=== PATIENT | male | born 1945 | race Caucasian/White ===

== ENCOUNTER 2020-11-05 03:41 | Inpatient (IN) | payer MEDICARE, OTHER ==
[~2020-11-05] VITALS: Ht 188 cm; Wt 80.6 kg
[~2020-11-05 03:41] MED LIST: GLYB1.5 PO; GLYB2.5 PO; IBUP800 PO; INSULANPEN SC; LEVSOD88 PO; LISI20 PO; METF500C PO; Norco 10-325 T1 EACH PO; PANT40 PO; SIMV10 PO; TELM40 PO
[2020-11-05 04:02] LABS: BASOPHILS ABSOLUTE AUTO 0.06 K/mm3 (0.00-0.23); BASOPHILS PERCENT AUTO 1 % (0-2); EOSINOPHILS ABSOLUTE AUTO 0.12 K/mm3 (0.00-0.68); EOSINOPHILS PERCENT AUTO 2 % (0-6); Hematocrit 45.6 % (37.0-53.0); Hemoglobin 15.2 g/dL (13.5-17.5); IMMATURE GRAN ABSOLUTE AUTO 0.03 K/mm3 (0.00-0.10); IMMATURE GRAN PERCENT AUTO 1 % (0-1); LYMPHOCYTES ABSOLUTE AUTO 1.54 K/mm3 (0.84-5.20); LYMPHOCYTES PERCENT AUTO 27 % (21-46); MONOCYTES PERCENT AUTO 7 % (4-13); Mean Corpuscular HGB Conc 33.3 g/dL (31.5-36.5); Mean Corpuscular Volume 96 fL (80-100); Mean Platelet Volume 11.1 fL (9.1-12.4); NEUTROPHILS ABSOLUTE AUTO 3.57 K/mm3 (1.96-9.15); NEUTROPHILS PERCENT AUTO 63 % (41-73); Platelet Count 152 K/mm3 (150-400); RDW Coefficient Variation 13.4 % (11.7-14.2); RDW Standard Deviation 47.8 fL (35.1-46.3); Red Blood Cell Count 4.75 M/mm3 (4.30-5.90); White Blood Cell Count 5.72 K/mm3 (4.00-11.30)
[2020-11-05 04:21] LABS: Ethanol (Alcohol), Blood, Med <3 mg/dL
[2020-11-05 04:22] LABS: Alanine Aminotransfer (ALT/SGP 21 U/L (12-78); Albumin/Globulin Ratio 1.2 (0.8-1.8); Alk Phos 76 U/L (50-136); Anion Gap 6 mmol/L (6-16); Aspartate Aminotrans (AST/SGOT 17 U/L (12-37); Bilirubin, Total 0.9 mg/dL (0.1-1.0); Blood Urea Nitrogen 21 mg/dL (8-24); Bun/Creatinine Ratio 15.7 (12.0-20.0); CO2, Blood 25 mmol/L (21-32); Calcium, Blood 8.7 mg/dL (8.5-10.1); Chloride, Blood 114 mmol/L (98-108); Creatinine, Blood 1.34 mg/dL (0.60-1.20); Globulin, Blood 3.4 g/dL (2.2-4.0); Glomerular Filtration Rate 55 (60-); Glucose, Blood 149 mg/dL (70-99); Potassium, Blood 3.8 mmol/L (3.5-5.5); Sodium, Blood 145 mmol/L (136-145); Total Protein, Blood 7.4 g/dL (6.4-8.2); Troponin I <0.015 ng/mL (0.000-0.040)
[2020-11-05 04:56] LABS: Source, Urine Voided
[2020-11-05 04:59] LABS: Bilirubin, Urine Neg (Neg); Blood, Urine Neg (Neg); Glucose Qualitative, Urine 3+ (Neg); Ketones, Urine Neg (Neg); Leukocyte Esterase, Urine Neg (Neg); Nitrite, Urine Neg (Neg); Protein, Urine 2+ (Neg); Urobilinogen, Urine 1+ (Normal)
[2020-11-05 05:14] LABS: U Amphetamine Screen Not Detected; U Barbituate Screen Not Detected; U Benzodiazapine Screen Not Detected; U Buprenorphine Screen Not Detected; U Cannabinoids Screen Not Detected; U Cocaine Screen Not Detected; U Methadone Screen Not Detected; U Methamphetamine Screen Not Detected; U Opiates Screen Not Detected; U Oxycodone Screen Not Detected; U Phencyclidine Screen Not Detected; U Propoxyphene Screen Not Detected
[2020-11-05 05:17] LABS: Appearance, Urine Clear (Clear); Color, Urine Yellow (P-Yellow)
[2020-11-05 05:18] LABS: White Blood Cells, Urine 0-2 /hpf (0-5)
[2020-11-05 05:19] LABS: Bacteria Rare /hpf; Mucus Mod (0-Heavy); Red Blood Cells, Urine 0-2 /hpf (0-2); Squamous Epithelial Cells Few /hpf (Few)
[2020-11-05] MEDS ORDERED: DONEPEZIL HCL5 M2 PO (05:55)
[2020-11-05] MEDS ORDERED: LEVETIRACETAM PO (05:56)
[2020-11-05 05:57] LABS: Free Thyroxine 0.34 ng/dL (0.70-1.60); Thyroid Stimulating Hormone 44.6 uIU/mL (0.360-4.800); Triiodothyronine, Free 1.37 pg/mL (2.18-3.98)
[2020-11-05 13:57] LABS: Influenza A, PCR NEGATIVE (NEGATIVE); Influenza B, PCR NEGATIVE (NEGATIVE); Resp Syncytial Virus, PCR NEGATIVE (NEGATIVE); SARS-Cov-2 (COVID-19) PCR, MMC NEGATIVE (NEGATIVE)
--- NOTE | 2020-11-05 17:52 | NUR ---
UPDATE; BED ALARMS AND PT IS STANDING IN ROOM BY BED. VERY AGATED AND PULLING GOWN AND TELE CORDS OFF. STATES HE'S LEAVING AND WE CAN'T HOLD HIM HEAR. MULTIPLE STAFF MEMBERS TO ROOM. ASSISTED TO BED, RESISTS AND GRABS FOREARM OF METAL BUMPER AND REFUSES TO LET GO. SECURITY NOTIFIED AND TO BEDSIDE. ASSISTED BY STAFF AND SECURITY TO BED SUZIE VEST PLACED, WRIST RESTRAINTS BILATERAL. PULLING AGAINST RESTRAINTS AND CALLS THIS RN A BITCH. PROVIDER NOTIFIED BY WINCHER. RESTRAINT ORDERS PLACED AND ORDER FOR ATIVAN GIVEN. MEDICATED PER ORDERS. LEFT ROOM, REMAINS ON VIDEO MONITORING. CALLED BY PRINCIPAL JAVA SOFTWARE ENGINEER THAT LEGS ARE OVER SIDE OF BED, BACK TO ROOM AND PT IS DIAGNOL IN BED WITH FEET TOUCHING FLOOR. BILATERAL ANKLE RESTRAINTS PLACED, WINCHER UPDATED.
--- NOTE | 2020-11-05 23:26 | NUR ---
CALLED DR REEVES REGARDING PT'S BP BEING HIGH DUE TO AGITAION. DR REEVES SAID TO GIVE ATIVAN NO NEW ORDERS RECIEVED.
--- NOTE | 2020-11-06 00:48 | NUR ---
CALLED DR MORTON REGARIDING PT. PT VERY AGITATED, CONFUSED, SITTING UP AND COMBATIVE SHORTLY AFTER RECIEVING ATIVAN. PT IS ON FOUR PT SOFT RESTRAINTS AND HAS VEST IN PLACE. DR MORTON ORDERED HALDOL 2-3MG IV Q6 PRN.
[2020-11-06 05:22] LABS: BASOPHILS ABSOLUTE AUTO 0.02 K/mm3 (0.00-0.23); BASOPHILS PERCENT AUTO 0 % (0-2); EOSINOPHILS PERCENT AUTO 0 % (0-6); Hematocrit 43.4 % (37.0-53.0); IMMATURE GRAN ABSOLUTE AUTO 0.08 K/mm3 (0.00-0.10); IMMATURE GRAN PERCENT AUTO 1 % (0-1); LYMPHOCYTES ABSOLUTE AUTO 0.51 K/mm3 (0.84-5.20); LYMPHOCYTES PERCENT AUTO 4 % (21-46); MONOCYTES ABSOLUTE AUTO 0.25 K/mm3 (0.16-1.47); MONOCYTES PERCENT AUTO 2 % (4-13); Mean Corpuscular HGB 32.1 pg (26.0-34.0); Mean Corpuscular HGB Conc 34.6 g/dL (31.5-36.5); Mean Corpuscular Volume 93 fL (80-100); Mean Platelet Volume 11.5 fL (9.1-12.4); NEUTROPHILS ABSOLUTE AUTO 12.38 K/mm3 (1.96-9.15); NEUTROPHILS PERCENT AUTO 93 % (41-73); Platelet Count 171 K/mm3 (150-400); RDW Coefficient Variation 13.2 % (11.7-14.2); RDW Standard Deviation 44.6 fL (35.1-46.3); Red Blood Cell Count 4.67 M/mm3 (4.30-5.90); White Blood Cell Count 13.24 K/mm3 (4.00-11.30)
[2020-11-06 05:44] LABS: Alanine Aminotransfer (ALT/SGP 22 U/L (12-78); Albumin, Blood 4.1 g/dL (3.4-5.0); Albumin/Globulin Ratio 1.2 (0.8-1.8); Alk Phos 72 U/L (50-136); Anion Gap 12 mmol/L (6-16); Aspartate Aminotrans (AST/SGOT 24 U/L (12-37); Bilirubin, Total 1.3 mg/dL (0.1-1.0); Blood Urea Nitrogen 23 mg/dL (8-24); Bun/Creatinine Ratio 19.5 (12.0-20.0); CO2, Blood 18 mmol/L (21-32); Chloride, Blood 111 mmol/L (98-108); Creatinine, Blood 1.18 mg/dL (0.60-1.20); Globulin, Blood 3.4 g/dL (2.2-4.0); Glomerular Filtration Rate >60 (60-); Glucose, Blood 324 mg/dL (70-99); Potassium, Blood 3.7 mmol/L (3.5-5.5); Sodium, Blood 141 mmol/L (136-145); Total Protein, Blood 7.5 g/dL (6.4-8.2)
--- NOTE | 2020-11-06 06:51 | NUR ---
SHIFT SUMMARY PT HAS BEEN AGITATED AND CONFUSED. HE IS ON 4PT SOFT RESTRAINTS WITH A VEST. PULLING AT RESTRAINGHTS. MAKING ODD STATEMENTS, NOT DIRECTABLE AT TIMES, DIFFERENT TOPICS WITHIN SECONDS, INCONT OF URINE. HEART RATE 60'S TO 130'S AT TIMES WHEN AGITATED. MEDICATED PER EMAR FOR AGITATION.
--- NOTE | 2020-11-06 16:57 | NUR ---
1500 RECEIVED PT TO RM 351 VIA THANIA FROM PCU 8. PT CONFUSED AND DISORIENTED. ADMITTED FOR ACUTE ENCEPHALOPATHY. CURRENTLY IN SUZIE VEST AND SOFT WRIST RESTRAINTS. PT UNDIRECTABLE AND VERY AGGITATED, WELL HIGH FALL RISK. PT TO ER AFTER FALL AT HOME, UNKNOWN CAUSE. HX OF DEMENTIA, NONCOMPLIANT WITH MEDS. PT IS DIABETIC AND CURRENTLY NEEDING TO BE FED HIS MEALS. INCONTINENT OF BOWEL AND BLADDER AT THIS TIME. MOSTLY NONVERBAL; DOES NOT ANS QUESTIONS AND DOES NOT FOLLOW DIRECTIONS. NO S/SX OF DISTRESS TO PRESENT. BED ALARM ON FOR SAFETY. CALL LT IN REACH.
--- NOTE | 2020-11-06 19:52 | NUR ---
AMS NOTED, TURNS HEAD TO VOICE BUT NONVERBAL AT THIS TIME AND ENTIRELY CONFUSED. HE'S UNABLE TO FOLLOW COMMANDS OR REDIRECT. PT IN SUZIE AND BILAT WRIST RESTRAINTS FOR VERY HIGH FALL RISK, IMPULSIVITY AND CONFUSION. HE APPEARS ANXIOUS AND AGGITATED, CONSTANTLY PULLING AT RESTRAINTS AND LINES AND IS ENTIRELY RESISTANT TO CARE. HE'S TENSE/RIGID, RESTLESS AND FIGITY AT ALL TIMES. BED ALARM, X3 RAILS RAISED AND CAMERA MONITORING ALSO IN PLACE.
--- NOTE | 2020-11-06 20:14 | NUR ---
ATTENDS CHANGED FOR URINARY INCONTINENCE AND REQUIRED X3 STAFF. PT EXTREMELY STRONG AND GEORGINA CARE THE ENTIRE TIME. PT UNABLE TO FOLLOW COMMANDS, CLENCHES FISTS NON-STOP, TEARS AT ATTENDS, SUZIE VEST AND RESTRAINTS AND KICKS AT STAFF W/ATTEMPT TO TURN/CHANGE.
--- NOTE | 2020-11-06 20:20 | NUR ---
STAFF ATTEMPTED TO GET VITALS BUT PT IS SO TENSE IT MAKES OBTAINING A BP NEARLY IMPOSSIBLE. BP READS VERY HIGH (SBP 200'S) BUT PT HAS CLENCHED FISTS W/FLEXED ARMS IN WRIST RESTRAINTS WHILE ATTEMPTING TO GET BP IN ARMS AND HE WAS KICKING AT STAFF W/ATTEMPT TO GET BP ON LEGS. PER RN REPORT, MD WANTED TO AVOID PRN ATIVAN BUT I AM UNSURE HOW STAFF WILL ACCURATELY OBTAIN VITALS OR KEEP PT SAFE FROM HARMING SELF OR STAFF WITHOUT FURTHER SEDATING MEDS. WILL DISCUSS W/MD MOMENTARILY AND ATTEMPT VITALS AGAIN WHEN PT IS POSSIBLY CALMER.
--- NOTE | 2020-11-06 20:46 | NUR ---
NOTIFIED YOVANNY (CORONER FORENSIC TECHNICIAN) OF PT'S LEVEL OF AGGITATION, ANXIETY AND TENSITY. HALDOL 10MG IM X1 RX'D. WILL ADMINISITER WHEN AVAILABLE FROM PHARMACY AND EVALUATE FOR EFFECT.
--- NOTE | 2020-11-06 21:55 | NUR ---
ZYPREXA IM X1 RECIEVED MOMENTARILY AGO, AWAITING EFFECT. HE CONT'S TO TUG TUG ON RESTRAINTS NON-STOP, IS EXTREMELY RESTLESS AND FIGITY IN BED AND IS UNABLE TO RELAX, FOLLOW INSTRUCTION OR REDIRECT. HE IS COMPLETELY CONFUSED AND NONVERBAL STILL OUTSIDE OF SOME INCOHERENT MUMBLING.
[2020-11-06] MEDS ORDERED: IBUP800 PO (22:00)
--- NOTE | 2020-11-06 23:33 | NUR ---
PT IS SLIGHTLY MORE CALM FOLLOWING ZYPREXA AND APPEARS TO BE GETTING SOME REST WHEN UNDISTURBED. VITALS WERE FINALLY ABLE TO ACCURATELY BE OBTAINED AND ARE WNL. HE TOLERATED CARE BETTER BUT CONT'S TO REQUIRE X3 ASSIST W/ATTENDS CHANGES AND REPOSITIONING D/T STRENGTH AND RESISTANCE. EVEN W/IMPROVED RESTING, HE CONT'S TO PULL AT LINES/RESTRAINTS AND IS FIGITY/RESTLESS IN BED.
--- NOTE | 2020-11-07 05:08 | NUR ---
SUMMARY: PT IS VERY CONFUSED, DOESN'T ANSWER Q'S, IS MOSTLY NONVERBAL AND SELDOMLY MUMBLES INCOHERENTLY TO SELF. HE APPEARS TO RESPOND TO STAFF'S VOICES BUT RARELY OPENS EYES AND DOESN'T FOLLOW ANY INSTRUCTIONS. HE BEGAN SHIFT EXTREMELY TENSE/RIGID, ANXIOUS, AGGITATED, PULLING AT RESTRAINTS AND LINES CONSTANTLY AND WOULDN'T REDIRECT OR CALM DESPITE ATTEMPTS TO SOOTHE HIM. STAFF WERE UNABLE TO GET ACCURATE BP RESULT BUT SBP APPEARED >200. YOVANNY RX'D ZYPREXA 10MG IM X1 AND IT WAS SOMEWHAT EFFECTIVE AT CALMING HIM. HE STILL FOUGHT SUZIE AND BILAT WRIST RESTRAINTS MAJORITY OF NOCTE BUT WAS ABLE TO GET SOME REST. X3 STAFF REQUIRED TO CHANGE INCONTINENT ATTENDS AND MAINTAIN TURN SCHEDULE D/T STRENGTH AND INABILITY TO REDIRECT HIM. HE WASN'T AWAKE ENOUGH FOR ANY PO INTAKE THIS SHIFT AND FEEDER ASIST REQUIRED DURING MEALS. IV IS SL. HANDS ARE SWOLLEN AND RED BUT PULSES ARE PALPABLE W/GOOD CAP REFILL X4 EXT'S. NO ACUTE CHANGES, VSS/AFEBRILE. WCTM AND REPORT TO DAY RN.
--- NOTE | 2020-11-07 18:52 | NUR ---
SHIFT SUMMARY PT WOKE TO NAME THIS AM AND ANSWERED A COUPLE OF BREIF QUESTIONS. PT LOOKED AT ME WHEN ENTERING RM AND ANSWERED "PRETTY GOOD I GUESS", WHEN ASKED HOW HE WAS DOING. PT THEN LOOKED OUT THE WINDOW AND AROUND THE ROOM AND DID ANS YES AND NO TO A COUPLE OF OTHER QUESTIONS A FEW MINUTES LATER. PT DID NOT ANS ANY MORE QUESTIONS THE REST OF THE DAY AND DID NOT FOLLOW ANY DIRECTIONS. PT BECOMING VERY AGITATED THRU OUT THE DAY AND WOULD NOT CO-OP WITH CHANGING ATTENDS OR REPOSITIONING. DR ARRINGTON HERE IN AM TO SEE PT. NEURO CONSULT ORDERED. DR MAN NOTIFIED OF CONSULT AND CURRENTLY IN RM WITH PT. PT'S CALLED TO CK ON PT; UPDATE GIVEN. DR MAN ASKED THAT PT'S BE IN RM WHEN HE CAME FOR CONSULT TO ASSIST WITH HX. TO AT THIS TIME WELL. PT VERY AGITATED THIS AFTERNOON AND TRYING TO GET OOB CONSTANTLY. PT COMBATIVE WITH STAFF, TRYING TO KICK AT US WHEN CHANGING ATTENDS. DR ARRINGTON NOTIFIED FOR BLE'S SOFT RESTRAINTS WELL. DR MAN IN RM DISCUSSING PT'S HX WITH . IV SOLUMEDROL DOSE ADJUSTED. GURU HEARN ORDERED THIS AM. PT FAILED AND MADE NPO FOR NOW. PO MEDS CHANGED TO IV NEEDED. IVF'S INFUSING PER EMAR. BED ALARM ON FOR SAFETY. PT ON CAMERA. CALL LT IN REACH. REPORT GIVEN TO ONCOMING RN.
--- NOTE | 2020-11-08 05:06 | NUR ---
TIRE SPECIALIST SUMMARY PT CONT TO VERY CONFUSED, VERY RESISTANT TO CARE. PT APPEARS TO RESPOND TO STAFF'S VOICES. PT DOES NOT FOLLOW INSTRUCTIONS, CONT TO PULL ON RESTRAINTS. PT IS VERY ANXIOUS, AGITATED AND BECOMES EXTREMELY TENSE / RIGID WHEN STAFF IS PROVIDING CARE. PT CONT ON 4 PT SOFT RESTRAINTS AND SUZIE VEST. PT NPO ORDERED. NO ACUTE CHANGES NOTED TO PT THIS SHIFT. PT CURRENTLY SLEEPING COMFORTABLY IN BED AT THIS TIME.
--- NOTE | 2020-11-08 16:21 | NUR ---
PATIENT HAS NOT BEEN ORIENTED AT ALL TODAY. SLEEPING/LETHARGIC ALL DAY HOWEVER DOES BECOME AGGITATED IN BED ON OCCASION OR WHEN ADL'S ARE BENG PROVIDED. PATIENT HAS A VERY STRONG, FIRM SHERIFFS AND RESISTS CARE, TURNING, REPOSITIONING; CAN REQUIRE UP TO 3-4STAFF MEMBERS FOR CARE AT TIMES. BP THIS AM WAS ELEVATED; DID RESPOND TO IV HYDRALAZINE. NO PO MEDS GIVEN PER ORDERS; PATIENT ASPIRATION RISK AT THIS TIME. SEVERAL LOOSE STOOLS THIS MORNING. IV KEPPRA ADMINISTERED PER EMAR; LR's AT 75/HR. PATIENT CHECKED ON AND PROVIDED CARE AT MINIMUM Q2HRS. RESTING IN BED AT THIS TIME; 4 PT RESTRAINT & SUZIE VEST IN PLACE. CALL LIGHT WITHIN REACH.
[2020-11-08] MEDS ORDERED: PANT40 PO (17:39)
[2020-11-08] MEDS ORDERED: ZOCOR20 MG PO (17:40)
[2020-11-08] MEDS ORDERED: GLYB2.5 PO (17:40)
[2020-11-08] MEDS ORDERED: Prinivil10 MG PO (17:41)
[2020-11-08] MEDS ORDERED: Aspir 8181 MG PO (17:41)
[2020-11-08] MEDS ORDERED: TRESIBA FL200 UNIT/2 SC (17:42)
--- NOTE | 2020-11-08 22:46 | NUR ---
2054 PT LYING IN BED, WHEN ASKED ABOUT DISCOMFORT, PT DOES NOT ANSWER. PT IS AAO X 1, A HIGH FALL RISK, IS UNABLE TO BE ORIENTED ENOUGHT TO USE CALL LIGHT, ATTMEPTS TO GET OUT OF BE. SUZIE, BILAT WRIST, BILAT ANKLES, AND RAILS X 4 FOR PT SAFETY. NO OTHER APPARENT SIGNS OF DISTRESS. BED ALARM IS ON. CALL LIGHT IS IN REACH.
--- NOTE | 2020-11-09 00:32 | NUR ---
PT LYING IN BED, EYES CLOSED, WAKES EASILY TO VERBAL STIMULI. WHENEVER PT IS AWAKE HE IS PULLING AT RESTRAINTS AND ANYTHING ELSE HE CAN REACH. PT VERY RESISTANT TO BEING TURNED OR CHANGED. ORAL CARE DONE. BS WAS 174. NO OTHER APPARENT SIGNS OF DISTRESS. CALL LIGHT IS IN REACH. RESTRAINTS IN PLACE. BED ALARM IS ON.
--- NOTE | 2020-11-09 02:55 | NUR ---
0200 PT LYING IN BED, EYES CLOSED, APPEARS TO BE RESTING. BREATHING IS EVEN, UNLABORED. NO APPARENT SIGNS OF DISTRESS. CALL LIGHT IS IN REACH. RESTRAINTS ARE IN PLACE. BED ALARM IS ON.
--- NOTE | 2020-11-09 04:08 | NUR ---
PT LYING IN BED, EYES CLOSED, APPEARS TO BE RESTING. BREATHING IS EVEN, UNLABORED. NO APPARENT SIGNS OF DISTRESS. CALL LIGHT IS IN REACH. BED ALARM IS ON. RESTRAINTS ARE IN PLACE.
--- NOTE | 2020-11-09 04:09 | NUR ---
PT IS AAO X 1 TO SELF. DOES NOT ANSWER QUESTIONS RE COMFORT. BS AT HS WAS 203, MN WAS 174. ON RA. PT PULLS ON LINES AND ATTEMPTS TO GET OUT OF BED WITHOUT ASSIST, PT HAS WEAKNESS. PT IS UNABLE TO BE REORIENTED TO USE CALL LIGHT AND NOT GET OUT OF BED. RESTRAINTS ARE IN PLACE.
--- NOTE | 2020-11-09 06:09 | NUR ---
TURNED AND CHANGED PT, PT TOLERATED WELL. NO OTHER APPARENT SIGNS OF DISTRESS. CALL LIGHT IS IN REACH. RESTRAINTS ARE IN PLACE. BED ALARM IS ON. NO OTHER CHANGES THIS SHIFT.
--- NOTE | 2020-11-09 16:36 | NUR ---
PT IS ALERT, THIS AM THE PT WAS MORE AWAKE ABLE TO TALK AND EXPRESS HIS FEELINGS, THE PT WAS ABLE TO STAND AND TOLERATED SITTING IN THE CHAIR AT THE BEDSIDE FOR SEVERAL HOURS UNTIL HE BECAME SLEEPY, THE SPEECH THERAPIST WAS IN TO EVALUATE THE PT BUT HE WAS TO LETHARGIC AT THAT TIME TO PARTICIPATE, THE PT WAS ASSITED BACK TO BED AND RESTED FOR AWHILE THEN BECAME VERY RESTLESS AND AGITATED, ATIVAN WAS GIVEN, THE PT IS IN A SUZIE VEST, PT CONTINUES TO BE RESTLESS, PT IS NOT EASILY REDIRECTED HE WAS THIS AM, CALL LIGHT IN REACH, PT APPEARS TO BE BREATHING EASILY ON RA AT THIS TIME, WILL CONTINUE TO MONITOR AND ASSESS FOR CHANGES
--- NOTE | 2020-11-10 06:40 | NUR ---
SHIFT SUMMARY PT IS 75 Y/O MALE, ADMITTED FOR ACUTE ENCEPHALOPATHY. THIS AM, PT WAS ABLE TO ANSWER "YES" TO HIS NAME, BUT OTHERWISE WOULD NOT RESPOND TO QUESTIONS OR DIRECTIONS, OR MAKE EYE CONTACT WITH STAFF. A&O X 0. NO S/S OF PAIN, NAUSEA OR SOB. PT DID BECOME AGITATED AT TIMES AND PULLED OFF HIS CLOTHES AND ATTENDS, ESPECIALLY WHEN WET. SUZIE RESTRAINT IN PLACE FOR PATIENT SAFETY. NO ACUTE CHANGES IN PT CONDITION NOTED DURING THE NIGHT. WILL CONTINUE TO MONITOR AND TREAT PER EMAR UNTIL HAND OFF TO DAY SHIFT RN.
--- NOTE | 2020-11-10 17:29 | NUR ---
SHIFT SUMMARY PATIENT ALERT, ORIENTED TO SELF THIS SHIFT. PATIENT REMAINS IN SUZIE THIS SHIFT. PATIENT VERY UNSTEADY ON HIS FEET, 2 PERSON ASSIST TO THE BEDSIDE COMODE. PATIENT UNABLE TO ANSWER MOST QUESTIONS APPROPRIATELY OR FOLLOW DIRECTIONS WITHOUT MULTIPLE REPETITIONS. PATIENT ALERT ENOUGH FOR A DIET THIS SHIFT. PATIENT CURRENTLY LAYING IN BED RESTING.
--- NOTE | 2020-11-11 04:32 | NUR ---
SHIFT SUMMARY PATIENT HAD NO ACUTE CHANGES OBSERVED. ALERT TO SELF. CBG 171. POWERGLIDE JAMAR INTACT. LR INFUSING AT 75 mL/HR. IV KEPPRA INFUSED. VSS/AFEBRILE. NO S/SX OF PAIN, SOB, AND N/V. NOT ABLE TO FOLLOW DIRECTIONS AT THIS TIME. RESTRAINTS IN PLACE WITH BED EXIT ATTEMPTS SWINGING LEGS OOB. BED ALARM ACTIVATED. IV ATIVAN 1 MG GIVEN X ONE FOR AGITATION. BED IN LOWEST POSITION. WILL CONTINUE TO MONITOR UNTIL DAY SHIFT NURSE ASSUMES CARE.
--- NOTE | 2020-11-11 06:39 | NUR ---
BP 171/88 AND IV APRESOLINE 10 MG GIVEN FOR SBP>160. BP 143/75 ON RECHECK.
--- NOTE | 2020-11-11 09:29 | NUR ---
PER HOLD INSULIN TODAY.UNSURE OF INTAKE
--- NOTE | 2020-11-11 10:37 | NUR ---
OK FOR RENEW VEST RESTRAINTS PER
--- NOTE | 2020-11-11 11:16 | NUR ---
OK FOR WRIST AND VEST RESTRAINTS. PATIENT STILL PULLING AT IV EVEN THOU WRAPPED UP ARM AND TRYING TO GET OUT. PER
--- NOTE | 2020-11-11 15:39 | NUR ---
ALERT TO SELF. REPEATS QUESTIONS. DOES NOT ANSWER QUESTIONS APPROPRIATELY. TALKED TO S.O. ABOUT PATIENT AND SHE STS SHE IS NOT HOME DURING THE DAY, SO SHE HAS NO IDEA HOW HE ACTS OR WHAT HE DOES DURING THE DAY. WHEN S.O. COMES HOME AROUND DINNERTIME PATIENT USUALLY DOES NOT EAT DINNER HE GETS "MAD AT HER." DID NOT EAT BREAKFAST AND HAD FEW BITES FOR LUNCH. UNLABORED RESPIRATIONS. IN SUZIE VEST AND WRIST RESTRAINTS. PULLED POWERGLIDE APART WHEN WAS IN VEST ALSO TRIES TO SLIP OUT OF VEST AND GET UP. IV INFUSING. WCTM
--- NOTE | 2020-11-11 18:11 | NUR ---
S.O. WAS IN TO VISIT FOR ABOUT 30 MINUTES.
--- NOTE | 2020-11-11 21:35 | NUR ---
PATIENT HAVING INCREASED AGITATION. KICKING AT SIDE RAILS AND END OF BED. IV ATIVAN 1 MG GIVEN PER EMAR.
--- NOTE | 2020-11-12 01:56 | NUR ---
PATIENT HAVING INCREASED AGITATION. KICKING AT STAFF AND KICKED FOOT BOARD OFF BED. HOSPTIALIST DR MORTON ORDERED SOFT EXTREMETRY X 4 RESTRAINTS IN ADDITION TO SUZIE ALREADY IN PLACE.
--- NOTE | 2020-11-12 05:26 | NUR ---
SHIFT SUMMARY PATIENT HAD INCREASED AGITATION T/O SHIFT. KICKED FOOT BOARD OFF END OF BED AND KICKING AT STAFF. HOSPITALIST DR MORTON ORDERED SOFT EXTREMETIES X 4 WITH SUZIE VEST STILL IN PLACE. IV ATIVAN 1 MG GIVEN X TWO FOR AGITATION. NO S/SX OF PAIN, SOB, AND N/V. VSS/AFEBRILE. POWERGLIDE JAMAR INTACT. LR INFUSING AT 75 mL/HR. ALERT TO SELF AND NON-VERBAL AT TIMES. NOT ABLE TO FOLLOW DIRECTIONS AT THIS TIME. BED IN LOWEST POSITION. WILL CONTINUE TO MONITOR UNTIL DAY SHIFT NURSE ASSUMES CARE.
[2020-11-12 06:27] LABS: Hematocrit 39.8 % (37.0-53.0); Hemoglobin 14.2 g/dL (13.5-17.5); Mean Corpuscular HGB 32.3 pg (26.0-34.0); Mean Corpuscular HGB Conc 35.7 g/dL (31.5-36.5); Mean Corpuscular Volume 91 fL (80-100); Mean Platelet Volume 11.3 fL (9.1-12.4); Platelet Count 178 K/mm3 (150-400); Red Blood Cell Count 4.39 M/mm3 (4.30-5.90); White Blood Cell Count 11.81 K/mm3 (4.00-11.30)
--- NOTE | 2020-11-12 06:41 | NUR ---
BP 168/79 AND IV APRESOLINE 10 MG GIVEN FOR SBP >160 BP 134/83 ON RECHECK.
[2020-11-12 06:48] LABS: Anion Gap 8 mmol/L (6-16); Blood Urea Nitrogen 24 mg/dL (8-24); Bun/Creatinine Ratio 23.1 (12.0-20.0); CO2, Blood 24 mmol/L (21-32); Calcium, Blood 8.4 mg/dL (8.5-10.1); Chloride, Blood 111 mmol/L (98-108); Creatinine, Blood 1.04 mg/dL (0.60-1.20); Glomerular Filtration Rate >60 (60-); Glucose, Blood 218 mg/dL (70-99); Potassium, Blood 3.7 mmol/L (3.5-5.5); Sodium, Blood 143 mmol/L (136-145)
--- NOTE | 2020-11-12 13:40 | NUR ---
ALL 3 SKIN TEARS TO RT; HAND, WRIST, F.A WERE CLEANED AND STERI STRIPS APPLIED THEN FOAM WITH BOARDER DRESSING
--- NOTE | 2020-11-12 18:03 | NUR ---
ALERT TO SELF. HAS REFUSED ALL FOOD TODAY. ATTEMPT MULTIPLE TIMES TO GIVE MEDS, BUT TO NO AVAIL. CLENCHES MOUTH SHUT WHEN ATTEMPTING TO DO ORAL CARE. ONLY SENTENCE PATIENT SPOKE TODAY WAS "I'LL EAT LATER." DOES SMILE WHEN RN TALKING TO HIM, BUT MAKES NO ATTEMPT TO VERBALLY RESPOND. UNLABORED RESPIRATIONS. CONDOM CATH IN PLACE. WILL TRY TO PULL OUT IV WHEN BEING TURNED EVEN THOUGH IV SITE IS WRAPPED AND TUBING HIDDEN UNDER SUZIE VEST. ALL 3 SKIN TEARS ON RT ARM/HAND CLEANED, STERI STRIPS APPLIED AND PICS TAKEN. VERBAL CONSENT FOR PICS. , TAYLOR, UPDATED ON CONDITION. TM
--- NOTE | 2020-11-12 22:50 | NUR ---
BP 171/95 AND IV APRESOLINE 10 MG GIVEN PER EMAR FOR SBP>160. BP 133/75 ON RECHECK.
--- NOTE | 2020-11-13 04:17 | NUR ---
SHIFT SUMMARY PATIENT HAD NO ACUTE CHANGES OBSERVED. ALERT TO SELF AND NON-VERBAL T/O SHIFT EXCEPT FOR A FEW WORDS. NOT VERBALLY RESPONDING TO QUESTIONS. BEDREST AND NOT ABLE TO FOLLOW DIRECTIONS. POWERGLIDE JAMAR AND LR INFUSING AT 75mL/HR. RESTRAINTS IN PLACE PER ORDERS. CBG 231. MARGINAL MOUTH OPENING FOR PO MEDICATION. BP 171/95 AND IV APRESOLINE GIVEN PER EMAR WITH RECHECK OF 133/75. AFEBRILE. CALL LIGHT IN REACH. BED IN LOWEST POSITION. WILL CONTINUE TO MONITOR UNTIL DAY SHIFT NURSE ASSUMES CARE.
--- NOTE | 2020-11-13 18:45 | NUR ---
PT PLEASANT TODAY. MORE LUCID THIS AFT THAN THIS AM. HE IS ABLE TO TELL ME HIS NAME AND FOLLOW SOME INSTRUCTIONS. DID AMBULATE 2 ASSIST TO SHOWER TODAY. PERSISTS IN PULLING ATTENDS OFF AND THEN URINATING, HOWEVER MOSTLY ON BED AND FLOOR. THIS IS AN IMPROVEMENT OVER WHERE HE WAS NOT RESPONDING IN THE AM. VEST ON FOR SAFETY AND L ARM SOFT RESTRAINT ON FOR IV PROTECTION. BED IN LOW POSITION, CALL LITE IN REACH, BED ALARM ON FOR SAFETY. CAMERA FOR SAFETY
--- NOTE | 2020-11-13 22:18 | NUR ---
IMPULSIVE/RESTLESS IMPULSIVE, SETTING BED ALARM OFF MULTIPLE TIMES TRYING TO GET OOB HAS SUZIE VEST IN PLACE. STILL ABLE TO GET TO SIDE OF BED OR LEGS OFF BED. ALARM & SIDE RAILS IN PLACE. UNABLE TO FOLLOW DIRECTIONS OR ANSWER QUESTIONS APPROPRIATELY. STATES "I'M GOING TO SHOOT YOU" TO THIS NURSE & TELLS ME "YOU ARE GOING TO GET ARRESTED BY THE POLICE." ALSO STATES HIS MOM IS 80 YR OLD & IS GOING TO , CHILD LIKE RESPONSES & FEARFULNESS. DOESNT ANSWER ANY ORIENTATION QUESTIONS. TOOK 2-[address] BACK IN BED APPROPRIATELY, RESISTS STAFF HELP. MEDICATED c 0.5 MG IV ATIVAN PER ORDERS FOR RESTLESS & IMPULSIVENESS, WILL MONITOR.
--- NOTE | 2020-11-14 06:29 | NUR ---
SHIFT SUMMARY AOXSELF LAST NIGHT, UNABLE TO STATE . UNABLE TO ANSWER REST OF ORIENTATION QUESTIONS OR FOLLOW DIRECTIONS. CHILD LIKE RESPONSES TO QUESTIONS LAST NIGHT, "MY MOM IS 80 & SHE IS GOING TO ", "THE POLICE ARE GOING TO ARREST YOU" "IM GOING TO SHOOT YOU". WOULD NOT OPEN MOUTH FOR ANY PO INTAKE, INCLUDING MEDS & ORAL CARE. IMPULSIVE/CONFUSED/HIGH FALL RISK- SUZIE VEST & L WRIST RESTRAINT IN PLACE FOR SAFETY. SET BED ALARM OFF MULT TIMES TRYING TO GET OOB, MEDICATED c ATIVAN-READ PREVIOUS NOTE. PULLS @LINES, CLOTHING & RESTRAINTS FREQUENTLY. VERY STRONG STIFF/RIGID POSTURE & GALLEY STRIPPER. INCONT OF URINE. 2-3 PER ASSIST TO CHANGE FOR PT TRYS TO GRAB/KICK @TIMES. VSS. DR PENDLETON ORDERED IVIG INFUSION TO START TODAY 11/14/20. CALL LIGHT & BED ALARM IN PLACE FOR SAFETY.
--- NOTE | 2020-11-14 15:22 | NUR ---
PATIENT IS PLEASANTLY CONFUSED. VITALS STABLE. PATIENT RECIEVED IVIG TODAY AND TOLERATED WITHOUT PROBLEM; VITALS REMAINED STABLE. PATIENT SEEMS TO VERY SLOWLY BE "WAKING UP" AND REPLIES APPROPRIATELY TO STAFF ON OCCATION. STILL VERY MUCH CONFUSED. SMILES MUCH. LIKES TO REMOVE HIS BRIEF AND ANY OTHER OBJECT IN HIS REACH. REMAINS IN SUZIE VEST AND L WRIST RESTRAINT TO PROTECT PATIENT FROM REMOVING HIS POWERGLIDE. PATIENT CHECKED ON AT MINIMUM EVERY HOUR DUE TO HIS ACTIVENESS.
--- NOTE | 2020-11-15 06:32 | NUR ---
SHIFT SUMMARY AOX1-ABLE TO STATE NAME & TONIGHT. MORE TALKATIVE THEN PREVIOUS NIGHT & ANSWERS QUESTIONS CORRECTLY @TIMES. PT RESONDS "HELLO" BACK TO ME AFTER I GREET PT & WHEN ASKED IF THIRSTY PT STATES "YES" & TELLS THIS NURSE "I THINK THATS ENOUGH TO DRINK" WHEN HE IS DONE. STILL CONFUSED TO DATE, PLACE & SITUATION, HOWEVER SPEECH HAS IMPROVED. FOLLOWS SIMPLE DIRECTIONS SUCH STICKING OUT TONGUE. RESTLESS T/O NIGHT, HAS REMOVED ATTENDS 7+ TIMES & CONSTANTLY PULLING @SUZIE OR WRIST RESTRAINT, WHICH ARE IN PLACE FOR SAFETY. VSS. NO S/S PAIN, N/V OR DYSPNEA. CALL LIGHT & BED ALARM IN PLACE.
[2020-11-15 08:51] LABS: BASOPHILS ABSOLUTE AUTO 0.01 K/mm3 (0.00-0.23); BASOPHILS PERCENT AUTO 0 % (0-2); EOSINOPHILS ABSOLUTE AUTO 0.03 K/mm3 (0.00-0.68); EOSINOPHILS PERCENT AUTO 0 % (0-6); Hematocrit 35.8 % (37.0-53.0); Hemoglobin 12.5 g/dL (13.5-17.5); IMMATURE GRAN ABSOLUTE AUTO 0.09 K/mm3 (0.00-0.10); IMMATURE GRAN PERCENT AUTO 1 % (0-1); LYMPHOCYTES ABSOLUTE AUTO 1.03 K/mm3 (0.84-5.20); LYMPHOCYTES PERCENT AUTO 15 % (21-46); MONOCYTES ABSOLUTE AUTO 0.52 K/mm3 (0.16-1.47); MONOCYTES PERCENT AUTO 7 % (4-13); Mean Corpuscular HGB 32.1 pg (26.0-34.0); Mean Corpuscular HGB Conc 34.9 g/dL (31.5-36.5); Mean Corpuscular Volume 92 fL (80-100); Mean Platelet Volume 11.3 fL (9.1-12.4); NEUTROPHILS PERCENT AUTO 76 % (41-73); Platelet Count 170 K/mm3 (150-400); RDW Coefficient Variation 12.9 % (11.7-14.2); RDW Standard Deviation 42.5 fL (35.1-46.3); White Blood Cell Count 6.98 K/mm3 (4.00-11.30)
[2020-11-15 09:15] LABS: Alanine Aminotransfer (ALT/SGP 114 U/L (12-78); Albumin, Blood 2.9 g/dL (3.4-5.0); Albumin/Globulin Ratio 0.6 (0.8-1.8); Alk Phos 63 U/L (50-136); Anion Gap 8 mmol/L (6-16); Aspartate Aminotrans (AST/SGOT 74 U/L (12-37); Bilirubin, Total 4.4 mg/dL (0.1-1.0); Blood Urea Nitrogen 17 mg/dL (8-24); Bun/Creatinine Ratio 18.3 (12.0-20.0); CO2, Blood 26 mmol/L (21-32); Calcium, Blood 7.7 mg/dL (8.5-10.1); Chloride, Blood 106 mmol/L (98-108); Creatinine, Blood 0.93 mg/dL (0.60-1.20); Globulin, Blood 4.7 g/dL (2.2-4.0); Glomerular Filtration Rate >60 (60-); Glucose, Blood 144 mg/dL (70-99); Potassium, Blood 2.8 mmol/L (3.5-5.5); Sodium, Blood 140 mmol/L (136-145); Total Protein, Blood 7.6 g/dL (6.4-8.2)
--- NOTE | 2020-11-15 15:45 | NUR ---
PATIENT SEEMS TO BE PROGRESSING [id number], DAY-BY-DAY. HE IS EVEN MORE RESPONSIVE TO STAFF TODAY THAN HE WAS YESTERDAY. ORIENTED TO SELF. HE IS EATING MEALS BUT VERY SMALL AMOUNTS. PO MEDS TAKEN THIS MORNING IN APPLESAUCE. PATIENT RECIEVED A SECOND INFUSION OF IVIG TODAY AND TOLERATED WITHOUT COMPLICATION. PATIENT IS NOT RECIEVING 2 BAGS OF K-RIDERS; POTASSIUM THIS AM WAS 2.8; PATIENT TOLERATING K-RIDERS WITHOUT PROBLEM WELL. PATIENT REMAINS IN SOFT WRIST RESTRAINTS AND SUZIE VEST TO PROTECT IV LINES, STAFF AND FOR PATIENT SAFETY. PATIENT CHECKED ON AT MINIMUM Q 1-2 HOURS AND CARE PROVIDED PER RESTRAINT PROTOCOL PATIENT UNABLE TO CALL USING CALL LIGHT AT THIS TIME.
[2020-11-16 05:57] LABS: Anion Gap 9 mmol/L (6-16); Blood Urea Nitrogen 16 mg/dL (8-24); Bun/Creatinine Ratio 18.4 (12.0-20.0); CO2, Blood 24 mmol/L (21-32); Chloride, Blood 103 mmol/L (98-108); Creatinine, Blood 0.87 mg/dL (0.60-1.20); Free Thyroxine 0.86 ng/dL (0.70-1.60); Glomerular Filtration Rate >60 (60-); Glucose, Blood 164 mg/dL (70-99); Magnesium, Blood 1.9 mg/dL (1.6-2.4); Sodium, Blood 136 mmol/L (136-145); Triiodothyronine, Free 1.18 pg/mL (2.18-3.98)
--- NOTE | 2020-11-16 06:34 | NUR ---
SHIFT SUMMARY PATIENT ALERT AND ORIENTED TO SELF. HAD NO COMPLAINTS OF PAIN OR SHORTNESS OF BREATH. PATIENT CONTINUES TO BE IN VEST AND SOFT WRIST RESTRAINTS. ORDER FOR RESTRAINTS RENEWED BY DR ARRINGTON. PATIENT MEDICATED PER EMAR FOR HYPERTENSION. POWERGLIDE PATENT AND INFUSING. BED IN LOWEST POSITION WITH WHEELS LOCKED AND ALARM ON. CALL LIGHT WITHIN REACH. REPORT GIVEN TO ONCOMING RN.
[2020-11-16 18:11] LABS: ANA DIRECT Positive (Negative); ANTI-DNA (DS) AB QN 1 IU/mL (0-9); RNP ANTIBODIES 2.1 AI (0.0-0.9); SJOGREN'S ANTI-SS-B 0.4 AI (0.0-0.9); SMITH ANTIBODIES <0.2 AI (0.0-0.9)
--- NOTE | 2020-11-16 19:28 | NUR ---
SHIFT SUMMARY: NO ACUTE CHANGES TO REPORT THIS SHIFT. PT ALERT; ORIENTED TO SELF; COOPERATIVE WITH CARE. BILATERAL SOFT WRIST RESTRAINTS & SUZIE IN PLACE R/T UNSTEADY GAIT, HX FALLS, CONFUSION. STEROIDS & REHYDRATION CONTINUING. REPORT GIVEN TO ONCOMING RN.
--- NOTE | 2020-11-17 04:18 | NUR ---
SHIFT SUMMARY: PATIENT IS ALERT AND ORIENTED TO HIS NAME ONLY. FOLLOWS DIRECTIONS OCCASSIONALLY. POOR PO INTAKE, DOES NOT ALLOW ORAL CARE. INC. OF URINE, ATTEMPTED A CONDOM CATH X2 BUT WOULD NOT STAY IN PLACE. PATIENT IS CONSTANTLY PULLING AT BRIEF AND ANY LINE HE GETS A HOLD OF. PATIENT GRABS AT STAFF DURING CARE AND HAS A VERY FIRM ENGLISH AND READING INSTRUCTOR. RESISTANT TO TURNING AND WILL NOT KEEP INC. PAD AND BRIEF ON. BP IS ELEVATED 195/96, HYDRALAZINE 10MG IV PRN IS GIVEN. RECHECK ON BP WAS 151/92, GOOD EFFECT IS OBSERVED.
[2020-11-17 05:16] LABS: BASOPHILS ABSOLUTE AUTO 0.01 K/mm3 (0.00-0.23); BASOPHILS PERCENT AUTO 0 % (0-2); EOSINOPHILS PERCENT AUTO 0 % (0-6); Hematocrit 35.9 % (37.0-53.0); Hemoglobin 12.8 g/dL (13.5-17.5); IMMATURE GRAN ABSOLUTE AUTO 0.06 K/mm3 (0.00-0.10); IMMATURE GRAN PERCENT AUTO 1 % (0-1); LYMPHOCYTES ABSOLUTE AUTO 1.46 K/mm3 (0.84-5.20); LYMPHOCYTES PERCENT AUTO 18 % (21-46); MONOCYTES ABSOLUTE AUTO 0.79 K/mm3 (0.16-1.47); MONOCYTES PERCENT AUTO 10 % (4-13); Mean Corpuscular HGB 32.2 pg (26.0-34.0); Mean Corpuscular HGB Conc 35.7 g/dL (31.5-36.5); Mean Corpuscular Volume 90 fL (80-100); NEUTROPHILS ABSOLUTE AUTO 5.85 K/mm3 (1.96-9.15); NEUTROPHILS PERCENT AUTO 72 % (41-73); Platelet Count 201 K/mm3 (150-400); RDW Coefficient Variation 12.8 % (11.7-14.2); RDW Standard Deviation 42.2 fL (35.1-46.3); Red Blood Cell Count 3.97 M/mm3 (4.30-5.90); White Blood Cell Count 8.17 K/mm3 (4.00-11.30)
[2020-11-17 05:39] LABS: Alanine Aminotransfer (ALT/SGP 126 U/L (12-78); Albumin, Blood 2.8 g/dL (3.4-5.0); Albumin/Globulin Ratio 0.5 (0.8-1.8); Alk Phos 61 U/L (50-136); Anion Gap 8 mmol/L (6-16); Aspartate Aminotrans (AST/SGOT 80 U/L (12-37); Bilirubin, Total 6.1 mg/dL (0.1-1.0); Blood Urea Nitrogen 20 mg/dL (8-24); Bun/Creatinine Ratio 22.5 (12.0-20.0); CO2, Blood 24 mmol/L (21-32); Calcium, Blood 8.1 mg/dL (8.5-10.1); Chloride, Blood 105 mmol/L (98-108); Creatinine, Blood 0.89 mg/dL (0.60-1.20); Globulin, Blood 5.7 g/dL (2.2-4.0); Glomerular Filtration Rate >60 (60-); Glucose, Blood 160 mg/dL (70-99); Potassium, Blood 3.4 mmol/L (3.5-5.5); Sodium, Blood 137 mmol/L (136-145); Total Protein, Blood 8.5 g/dL (6.4-8.2)
--- NOTE | 2020-11-17 19:34 | NUR ---
SHIFT SUMMARY: NO ACUTE CHANGES TO REPORT THIS SHIFT. PT SLEEPING T/O SHIFT; ORIENTED TO SELF AND FAMILY. PT CONFUSED, DISORIENTED, HIGH FALL RISK; SOFT WRIST RESTRAINTS X2 & SUZIE VEST IN PLACE FOR PATIENT SAFETY. MEDS FOR AGITATION & PAIN PER EMAR. STEROIDS & REHYDRATION CONTINUING. REPROT GIVEN TO ONCOMING RN.
--- NOTE | 2020-11-18 06:17 | NUR ---
SHIFT SUMMARY: A&O TO FIRST NAME ONLY, VSMadai, CONTINUES TO BE VERY RESTLESS IN BED, LEGS CONSTANTLY MOVING. FREQUENT URINATION CAUSING PATIENT TO TEAR OFF BRIEF EVEN WITH RESTRAINTS ON WRIST. IV LINE IS HIDDEN OUT OF VIEW. POOR PO INTAKE. RESTRAINT ORDER WAS RENEWED BY DR ARRINGTON @0330. BED ALARM IS ON FOR SAFETY.
[2020-11-18 06:35] LABS: Alanine Aminotransfer (ALT/SGP 140 U/L (12-78); Albumin, Blood 2.8 g/dL (3.4-5.0); Albumin/Globulin Ratio 0.5 (0.8-1.8); Alk Phos 67 U/L (50-136); Anion Gap 8 mmol/L (6-16); Aspartate Aminotrans (AST/SGOT 83 U/L (12-37); Bilirubin, Total 4.6 mg/dL (0.1-1.0); Blood Urea Nitrogen 21 mg/dL (8-24); Bun/Creatinine Ratio 25.3 (12.0-20.0); CO2, Blood 26 mmol/L (21-32); Chloride, Blood 104 mmol/L (98-108); Creatinine, Blood 0.83 mg/dL (0.60-1.20); Globulin, Blood 5.2 g/dL (2.2-4.0); Glomerular Filtration Rate >60 (60-); Glucose, Blood 187 mg/dL (70-99); Sodium, Blood 138 mmol/L (136-145)
[2020-11-18 16:00] LABS: C-REACTIVE PROTEIN, EXT RANGE 0.742 mg/dL (0.000-0.300); Triiodothyronine, Free 2.17 pg/mL (2.18-3.98)
--- NOTE | 2020-11-18 17:29 | NUR ---
SHIFT SUMMARY PATIENT ORIENTED TO SELF. VERY ACTIVE IN BED, CONSTANTLY MOVES LEGS AND PULLS AT BRIEFS. SUZIE AND BLE SOFT WRISTS IN PLACE. 2 PERSON FOR BED MOBILITY AND PERSONAL CARE. PATIENT IS RESISTIVE AND GRABS AT STAFF. POOR PO INTAKE EVEN WITH ENCOURAGEMENT.
[2020-11-19 05:50] LABS: BASOPHILS ABSOLUTE AUTO 0.01 K/mm3 (0.00-0.23); BASOPHILS PERCENT AUTO 0 % (0-2); EOSINOPHILS ABSOLUTE AUTO 0.01 K/mm3 (0.00-0.68); EOSINOPHILS PERCENT AUTO 0 % (0-6); Hematocrit 35.5 % (37.0-53.0); Hemoglobin 12.6 g/dL (13.5-17.5); IMMATURE GRAN ABSOLUTE AUTO 0.05 K/mm3 (0.00-0.10); IMMATURE GRAN PERCENT AUTO 1 % (0-1); LYMPHOCYTES ABSOLUTE AUTO 1.24 K/mm3 (0.84-5.20); LYMPHOCYTES PERCENT AUTO 17 % (21-46); MONOCYTES ABSOLUTE AUTO 0.47 K/mm3 (0.16-1.47); MONOCYTES PERCENT AUTO 6 % (4-13); Mean Corpuscular HGB 32.2 pg (26.0-34.0); Mean Corpuscular HGB Conc 35.5 g/dL (31.5-36.5); Mean Corpuscular Volume 91 fL (80-100); Mean Platelet Volume 11.3 fL (9.1-12.4); NEUTROPHILS ABSOLUTE AUTO 5.52 K/mm3 (1.96-9.15); NEUTROPHILS PERCENT AUTO 76 % (41-73); Platelet Count 178 K/mm3 (150-400); RDW Coefficient Variation 12.9 % (11.7-14.2); RDW Standard Deviation 42.1 fL (35.1-46.3); Red Blood Cell Count 3.91 M/mm3 (4.30-5.90)
[2020-11-19 06:13] LABS: Alanine Aminotransfer (ALT/SGP 121 U/L (12-78); Albumin, Blood 2.8 g/dL (3.4-5.0); Albumin/Globulin Ratio 0.6 (0.8-1.8); Alk Phos 68 U/L (50-136); Anion Gap 7 mmol/L (6-16); Aspartate Aminotrans (AST/SGOT 69 U/L (12-37); Bilirubin, Total 3.1 mg/dL (0.1-1.0); Blood Urea Nitrogen 19 mg/dL (8-24); Bun/Creatinine Ratio 20.9 (12.0-20.0); CO2, Blood 26 mmol/L (21-32); Calcium, Blood 8.5 mg/dL (8.5-10.1); Chloride, Blood 105 mmol/L (98-108); Creatinine, Blood 0.91 mg/dL (0.60-1.20); Globulin, Blood 4.9 g/dL (2.2-4.0); Glomerular Filtration Rate >60 (60-); Glucose, Blood 222 mg/dL (70-99); Potassium, Blood 3.1 mmol/L (3.5-5.5); Sodium, Blood 138 mmol/L (136-145); Total Protein, Blood 7.7 g/dL (6.4-8.2)
--- NOTE | 2020-11-19 07:16 | NUR ---
SHIFT SUMMARY: A&O TO SELF, OCCASSIONALY ANSWERS QUESTION WITH ONE OR TWO WORDS. TYLENOL SUPP WAS GIVEN FOR SUSPECTED PAIN PER FLACC SCALE, SCORE WAS 4, WITH POOR EFFECT. 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 CONTINUOSLY PULLING OFF BRIEF AND REMOVING CLOTHES EVEN WITH SUZIE VEST AND WRIST RESTRAINTS ON. ZYPREXA WAS GIVEN WITH POOR EFFECT X1. PATIENT ATE 40% OF [employer] FOR SNACK AND ONLY SIPS OF NECTAR THICK LIQIUDS. IVF INFUSING PER MD ORDER. INC. OF LARGE AMOUNTS OF URINE. BED ALARM AND CAMERA ARE ON.
--- NOTE | 2020-11-19 17:10 | NUR ---
SHIFT SUMMARY PATIENT ORIENTED TO SELF. PATIENT RESTLESS IN BED AND FREQUENTLY MOVING LEGS AND PULLING OFF BRIEF. TWO PERSON ASSIST FOR REPOSITION AND PERSONAL CARE. PATIENT VERY RESISTIVE AND GRABS AT STAFF. CANNOT FOLLOW DIRECTIONS. POOR PO INTAKE TODAY. MEDS GIVEN CRUSHED BECAUSE PATIENT CHEWS THEM. NEW ORDERS FOR BOWEL CARE GIVEN. VISITED BRIEFLY THIS AFTERNOON.
--- NOTE | 2020-11-20 04:13 | NUR ---
SUMMARY PT REMAINS CONFUSED AND UNCOOPERATIVE. PT CONTINUES TO BE IN RESTRAINTS. PT GIVEN ORDERED ZYPREXA DUE TO CONTINUED PULLING AT RESTRAINTS AND DISROBING. PT DID HAVE SOME PERIODS OF BEING STILL AND QUIET. PT SLEPT VERY LITTLE. PT CURRENTLY AWAKE AND IN NO DISTRESS. CALL LIGHT IN REACH AND BED ALARM ON.
[2020-11-20 09:38] LABS: Albumin, Blood 2.6 g/dL (3.4-5.0); Anion Gap 7 mmol/L (6-16); Blood Urea Nitrogen 19 mg/dL (8-24); Bun/Creatinine Ratio 19.8 (12.0-20.0); CO2, Blood 29 mmol/L (21-32); Calcium, Blood 8.1 mg/dL (8.5-10.1); Chloride, Blood 105 mmol/L (98-108); Creatinine, Blood 0.96 mg/dL (0.60-1.20); Glomerular Filtration Rate >60 (60-); Glucose, Blood 183 mg/dL (70-99); Phosphorus, Blood 2.6 mg/dL (2.5-4.9); Potassium, Blood 3.1 mmol/L (3.5-5.5); Sodium, Blood 141 mmol/L (136-145)
--- NOTE | 2020-11-20 17:16 | NUR ---
SHIFT SUMMARY PATIENT MORE ALERT TODAY, ABLE TO GIVE HIS NAME WHEN ASKED BUT OTHERWISE ONLY ORIENTED TO SELF. WRIST RESTRAINTS DISCONTINUED BUT SUZIE REMAINS IN PLACE. PATIENT LESS AGITATED ONCE WRIST RESTRAINTS REMOVED. PATIENT UP TO BSC 2 ASSIST AND DANGLED ON SIDE OF BED BRIEFLY. CONTINUES TO BE DEFENSIVE WITH CARE/HAVE DIFFICULTY FOLLOWING DIRECTIONS. VISITED IN AFTERNOON.
--- NOTE | 2020-11-21 04:08 | NUR ---
SUMMARY PT PLACED BACK IN WRIST RESTRAINTS. PT WAS ATTEMPTING TO REMOVE POWERGLIDE. PT CONFUSED AND NOT REDIRECTABLE. PT WOULD BENEFIT FROM BEING PLACED BACK ON IV KEPPRA, DUE TO PT CHEWING PO KEPPRA. PT IS TAKING IN PO FLUIDS WELL. PT HAS NOT SLEPT MUCH THIS SHIFT. PT CURRENTLY AWAKE AND IN NO DISTRESS. CALL LIGHT IN REACH, BED ALARM ON AND ON CAMERA.
[2020-11-21 06:00] LABS: Albumin, Blood 2.7 g/dL (3.4-5.0); Anion Gap 7 mmol/L (6-16); Blood Urea Nitrogen 25 mg/dL (8-24); Bun/Creatinine Ratio 24.5 (12.0-20.0); CO2, Blood 27 mmol/L (21-32); Calcium, Blood 8.3 mg/dL (8.5-10.1); Chloride, Blood 105 mmol/L (98-108); Creatinine, Blood 1.02 mg/dL (0.60-1.20); Glomerular Filtration Rate >60 (60-); Glucose, Blood 261 mg/dL (70-99); Phosphorus, Blood 2.7 mg/dL (2.5-4.9); Potassium, Blood 3.1 mmol/L (3.5-5.5); Sodium, Blood 139 mmol/L (136-145)
--- NOTE | 2020-11-21 18:15 | NUR ---
SHIFT SUMMARY: PATIENT DIFFICULT TO AROUSE THIS MORNING, SO MEDICATIONS WERE DELAYED. HE WAS ALERT BUT NON VERBAL DURING THE REST OF THE DAY. APPETITE IS VERY POOR, EATS VERY LITTLE, EVEN WITH ASSISTANCE. DOES NOT COOPERATE WITH SOME CARE. WHEN OUT OF RESTRAINTS FOR ROM WILL ATTEMPT TO PULL CLOTHING AND IV OFF. INCONTINENT OF B&B, WEARING ATTENDS. VISITED THIS EVENING.
[2020-11-22 05:32] LABS: Albumin, Blood 2.9 g/dL (3.4-5.0); Anion Gap 4 mmol/L (6-16); Blood Urea Nitrogen 22 mg/dL (8-24); Bun/Creatinine Ratio 23.2 (12.0-20.0); CO2, Blood 29 mmol/L (21-32); Calcium, Blood 8.3 mg/dL (8.5-10.1); Chloride, Blood 106 mmol/L (98-108); Creatinine, Blood 0.95 mg/dL (0.60-1.20); Glomerular Filtration Rate >60 (60-); Glucose, Blood 216 mg/dL (70-99); Phosphorus, Blood 2.6 mg/dL (2.5-4.9); Potassium, Blood 3.5 mmol/L (3.5-5.5); Sodium, Blood 139 mmol/L (136-145)
--- NOTE | 2020-11-22 05:49 | NUR ---
PT IS CONFUSED, KNOWS HIS NAME, IS WEARING SUZIE VEST AND SOFT WRIST RESTRANTS. CBG AC/HS. MEDS FLOATED ON APPLESAUCE. IMCONTINENT, PT MANAGES TO TAKE OFF ATTENDS AND BLANKETS DESPITE BEING IN RESTRAINTS. PT NEEDS TO BE FED, MULTIPLE SKIN TEARS.
[2020-11-22 13:10] LABS: ATYPICAL PANCA <1:20 titer (Neg:<1:20); CYTOPLASMIC (C-ANCA) <1:20 titer (Neg:<1:20); PERINUCLEAR (P-ANCA) <1:20 titer (Neg:<1:20)
--- NOTE | 2020-11-22 18:22 | NUR ---
SHIFT SUMMARY: PATIENT WAS ALERT, VERBAL, AND PLEASANT THIS MORNING; BECAME MUCH MORE AGITATED AND COMBATIVE THIS AFTERNOON, REQUIRING ADMINISTRATION OF ZYPREXA IM, WHICH DID NOT RELIEVE SXS. TRIED TO WALK PT TO BR WITH FWW, BUT HE WAS UNABLE TO FOLLOW DIRECTIONS AND BECAME TOO UNSTABLE TO USE BR SAFELY, SO WAS PUT BTB BUT REQUIRED 5 NURSING STAFF D/T COMBATIVE NATURE. PILLS CRUSHED, DOES BETTER WITH SF VANILLA PUDDING THAN APPLESAUCE (TOO WATERY). IS WEARING ATTENDS, OFFERING URINAL AT INTERVALS BUT HE IS UNABLE TO USE. NUMEROUS SCRATCHES ON BUTTOCKS, BLE, AND ABDOMEN.
--- NOTE | 2020-11-23 06:15 | NUR ---
SHIFT SUMMARY PT IS A 75 Y/O MALE, ADMITTED FOR ACUTE ENCEPHALOPATHY. HE IS A&O X 0, BEDREST, CURRENTLY IN BUE SOFT WRIST RESTRAINTS AND A SUZIE VEST FOR PT PROTECTION. PT DOES NOT FOLLOW ANY DIRECTIONS, FIGHTS AGAINST STAFF WHEN TURNED OR CHANGED. PT ALSO TENDS TO PULL OF HIS ATTENDS AND ANY BLANKETS. NO S/S OF PAIN, NAUSEA OR SOB. VITAL SIGNS STABLE. PT REFUSED TO TAKE ANY PO MEDS OR FOODS. PT DID NOT SLEEP MUCH DURING THE NIGHT. NO ACUTE CHANGES IN PT CONDITION NOTED. WILL CONTINUE TO MONITOR AND TREAT PER EMAR UNTIL HAND OFF TO DAY SHIFT RN.
--- NOTE | 2020-11-23 15:36 | NUR ---
CALLED JUANITO REGARDING PT NOT TAKING IN MUCH FOR PO FLUIDS AND BP BEING 106/62 THIS AFTERNOON. SHE STATED SHE WOULD TAKE A LOOK AT PT LABS AND VS AND COME TO A DECISION AND PUT IN ORDERS IF NEEDED. FOR NOW WE WILL CONTINUE TO MONITOR PT FOR ANY CHANGES.
--- NOTE | 2020-11-23 19:09 | NUR ---
SHIFT SUMMARY NO ACUTE CHANGES, PT DOES NOT RESPOND VERABLLY. PT DID SAY "I GUESS" AT ONE POINT WHEN ASKED IF HE IS READY TO TAKE HIS MEDS. PT REMAINED IN SOFT RESTRAINTS THIS SHIFT, SUZIE AND SOFT WRIST RESTRAINTS, DUE TO HIS CONFUSION, DIFFICULTY TO REDIRECT, DISROBING, AND HIGH RISK FOR FALL. PT RESPONDED WELL TO RESTRAINTS, MOSTLY QUIET, CONTINUED TO PULL ON ATTENDS AND RESTRAINTS @ TIMES. PT ATE SMALL AMOUNTS DURING EACH MEAL; HOWEVER, DID NOT TAKE IN MUCH FLUIDS. TLAASUNNY NOTIFED OF LACK OF PO FLUID INTAKE AND BP OF 106/62. SHE STATED SHE WOULD LOOK OVER HIS CHART AND PUT IN ORDERS IF NEEDED. PT IS CURRENTLY LYING IN BED, RESTRAINTS IN PLACE AND CAMERA ON. PT DOES NOT USE CALL LIGHT OR EXPRESS NEEDS. NURSING ROUNDING COMPLETED T/O SHIFT WELL PERSONAL CARE AND REPOSITIONING.
--- NOTE | 2020-11-24 05:37 | NUR ---
SHIFT SUMMARY PT IS A 75 Y/O MALE, ADMITTED FOR ACUTE ENCEPHALOPATHY. HE IS A&O X 0, AWAKE BUT DOES NOT INTERACT WITH STAFF OR FOLLOW COMMANDS. PT MOVES IN BED, PULLS OFF CLOTHING AND ATTENDS WHILE IN BED. PT IS IN A SUZIE VEST AND BUE WRIST RESTRAINTS FOR PT SAFETY. NO S/S OF PAIN, NAUSEA OR SOB. VITAL SIGNS STABLE. NO ACUTE CHANGES IN PT CONDITION NOTED. WILL CONTINUE TO MONITOR AND TREAT PER EMAR UNTIL HAND OFF TO DAY SHIFT RN.
[2020-11-24 06:22] LABS: Hematocrit 38.3 % (37.0-53.0); Hemoglobin 13.3 g/dL (13.5-17.5); Mean Corpuscular HGB 32.4 pg (26.0-34.0); Mean Corpuscular HGB Conc 34.7 g/dL (31.5-36.5); Mean Corpuscular Volume 93 fL (80-100); Mean Platelet Volume 11.8 fL (9.1-12.4); Platelet Count 192 K/mm3 (150-400); RDW Coefficient Variation 13.3 % (11.7-14.2); RDW Standard Deviation 45.1 fL (35.1-46.3); White Blood Cell Count 10.28 K/mm3 (4.00-11.30)
[2020-11-24 06:48] LABS: Albumin, Blood 2.9 g/dL (3.4-5.0); Anion Gap 5 mmol/L (6-16); Blood Urea Nitrogen 28 mg/dL (8-24); Bun/Creatinine Ratio 28.4 (12.0-20.0); CO2, Blood 29 mmol/L (21-32); Calcium, Blood 8.8 mg/dL (8.5-10.1); Chloride, Blood 108 mmol/L (98-108); Creatinine, Blood 0.99 mg/dL (0.60-1.20); Free Thyroxine 1.12 ng/dL (0.70-1.60); Glomerular Filtration Rate >60 (60-); Glucose, Blood 128 mg/dL (70-99); Phosphorus, Blood 3.5 mg/dL (2.5-4.9); Sodium, Blood 142 mmol/L (136-145); Triiodothyronine, Free 3.21 pg/mL (2.18-3.98)
--- NOTE | 2020-11-24 18:18 | NUR ---
SHIFT SUMMARY PT REMAINED IN SUZIE AND SOFT WRIST RESTRAINTS T/O SHIFT. PT IS DISORIENTED, NONVERBAL, CONTINUOUSOLY DISROBING AND SOILING BED, WIGGLING IN BED AND SWINGING LEGS TO SIDE OF BED. PT IS HIGH RISK FOR FALLS AND DIFFICULT TO REDIRECT. PT CONTINUES TO STIFFEN WHEN CARE IS PROVIDED. PT RESPONDS TO VERBAL STIMULI AND MOVEMENT. PT HAD MOMENTS WHERE HE WOULD SHAKE HIS HEAD YES WHEN TALKED TO AND LAUGH/SMILE. PT BP WAS ELEVATED THIS EVENING WHEN VS WERE ASSESSED. HOSPITALIST WAS NOTIFED AND SHE PUT IN AN ORDER FOR PRN HYDRALAZINE AND INCREASED HIS DAILY LISINOPRIL DOSE. ORDERED MEDICATIONS WERE ADMINISTERED AND BP WAS REASSESSED SHORTLY AFTER. BP IS NOW STABLE. CBG CONTINUE TO BE ELEVATED, ALEJANDRA WHO IS MONITORING THIS CHANGED THE PT TO A HIGH SLIDING SCALE STARTING TOMORROW. PT CONTINUES TO EAT MINIMAL AMOUNTS EVEN WITH ASSISTANCE. PT TOOK ALL SCHEDULED MEDS TODAY CRUSHED IN PUDDING, THIS TOOK PATCIENCE AND COACHING. PT IS CURRENTLY LYING IN BED AND APPEARS TO BE IN NO DISTRESS. RESTRAINTS IN PLACE.
--- NOTE | 2020-11-25 04:37 | NUR ---
BUSINESS TRANSFORMATION CONSULTANT SUMMARY PT A/O X0. HAS BEEN MOSTLY NON-VERBAL. PT HAS ONLY MUMBLED ABOUT 3 WORDS THIS SHIFT. PT'S BODY STIFFENS UP WITH CARE. BEEN PULLING ON RESTRAINTS OFF AND ON OVERNIGHT. PT HAD PO MELATONIN CRUSHED IN PUDDING, HOWEVER IT TOOK A LOT OF COACHING AND PT HAS COUGHED AFTERWARDSB EVEN WITH SITTING AT 90 DEGREE ANGLE, THEREFORE OTHER PO MEDS HELD DUE TO ASPIRATION RISK. ATTENDS IN PLACE. CALL LIGHT WITHIN REACH, BED ALARM ON. WILL CONTINUE TO MONITOR.
--- NOTE | 2020-11-25 18:06 | NUR ---
SHIFT SUMMARY. LETHARGIC, ALERT AT TIMES, NON VERBAL, INCONTINENT. PT HAS REFUSED ALL ATTEMPTS OF PO FLUIDS AND FOOD TODAY EXCEPT FOR SOME DINNER. PT DOES NOT APPEAR TO BE IN ANY DISTRESS OR DISCOMFORT. IN TO VISIT MOHSENELLIDelphine THIS AFTERNOON AND WAS UPDATED, NO OTHER CHANGES OR CONCERNS.
--- NOTE | 2020-11-26 02:40 | NUR ---
PT IS ALERT AND NON-VERBAL. AGITATED OFF AND ON DURING THE NIGHT AND WOULD SWING LEGS OVER BED. PT'S BODY STIFFENS UP WITH CARE. ASPIRATION RISK, MEDS HELD. HOSPITALIST DR. SOUZA NOTIFIED OF PT NOT ABLE TO TAKE PO MEDS. STATES TO UPDATE INFO TO AM NURSE. NO NEW ORDERS. INCONTIENT OF URINE. ATTENDS IN PLACE. CALL LIGHT WITHIN REACH, BED ALARM ON. WILL CONTINUE TO MONITOR.
--- NOTE | 2020-11-26 17:50 | NUR ---
SHIFT SUMMARY. LETHARGIC, DISORIENTATED, MOSTLY NONVERBAL, INCONTINENT. BILATERAL SOFT WRIST AND SUZIE VEST RESTRAINT CONTINUED PT IS HIGH FALL RISK AND TO PROTECT LINES. PT APPEARS TO BE SOMEWHAT MORE ALERT AND RESPONSIVE THIS EVENING WITH STIMULATION, AFTER STIMULATION BY STAFF HAS ENDED PT QUICKLY BECOMES LETHARGIC AGAIN. PT ONLY ALLOWED STAFF TO GIVE TWO SPOON FULLS OF THICKENED WATER, HE DID ALLOW FOR ORAL CARE WITH SUCTION TWICE THIS SHIFT. PT STARTED ON CLINIMIX TODAY. NO VISITORS TODAY. NO APPARENT DISTRESS OR DISCOMFORT. NO OTHER CHANGES OR CONCERNS.
[2020-11-27 04:51] LABS: BASOPHILS PERCENT AUTO 0 % (0-2); EOSINOPHILS ABSOLUTE AUTO 0.01 K/mm3 (0.00-0.68); EOSINOPHILS PERCENT AUTO 0 % (0-6); Hematocrit 39.3 % (37.0-53.0); Hemoglobin 13.5 g/dL (13.5-17.5); IMMATURE GRAN ABSOLUTE AUTO 0.03 K/mm3 (0.00-0.10); IMMATURE GRAN PERCENT AUTO 0 % (0-1); LYMPHOCYTES ABSOLUTE AUTO 0.91 K/mm3 (0.84-5.20); LYMPHOCYTES PERCENT AUTO 10 % (21-46); MONOCYTES ABSOLUTE AUTO 0.53 K/mm3 (0.16-1.47); MONOCYTES PERCENT AUTO 6 % (4-13); Mean Corpuscular HGB 31.8 pg (26.0-34.0); Mean Corpuscular HGB Conc 34.4 g/dL (31.5-36.5); Mean Corpuscular Volume 93 fL (80-100); Mean Platelet Volume 11.4 fL (9.1-12.4); NEUTROPHILS ABSOLUTE AUTO 8.02 K/mm3 (1.96-9.15); NEUTROPHILS PERCENT AUTO 84 % (41-73); Platelet Count 212 K/mm3 (150-400); RDW Coefficient Variation 13.2 % (11.7-14.2); RDW Standard Deviation 43.9 fL (35.1-46.3); Red Blood Cell Count 4.24 M/mm3 (4.30-5.90)
--- NOTE | 2020-11-27 05:04 | NUR ---
GRADUATE ADVISOR SUMMARY PT A/O X0, HOWEVER HE HAS BEEN MORE ALERT TODAY. PT HAS SAID A FEW WORDS OVERNIGHT. ATTEMPTED TO GIVE MEDS BUT PT HAS REFUSED AND DOESN'T OPEN HIS MOUTH. AGITATED MOST OF THE NIGHT AND CONTINUES TO PULL HIS ATTENDS OFF CONSTANTLY AND WIGGLING IN THE BED AT TIMES. IM ZYPREXA GIVEN BUT DID NOT HELP MUCH. VSS. BED ALARM ON, CALL LIGHT WITHIN REACH.
[2020-11-27 05:09] LABS: Albumin, Blood 2.7 g/dL (3.4-5.0); Anion Gap 8 mmol/L (6-16); Blood Urea Nitrogen 46 mg/dL (8-24); Bun/Creatinine Ratio 45.5 (12.0-20.0); CO2, Blood 27 mmol/L (21-32); Calcium, Blood 8.7 mg/dL (8.5-10.1); Chloride, Blood 110 mmol/L (98-108); Creatinine, Blood 1.01 mg/dL (0.60-1.20); Glomerular Filtration Rate >60 (60-); Glucose, Blood 199 mg/dL (70-99); Magnesium, Blood 2.5 mg/dL (1.6-2.4); Potassium, Blood 3.6 mmol/L (3.5-5.5); Sodium, Blood 145 mmol/L (136-145)
--- NOTE | 2020-11-27 18:27 | NUR ---
SHIFT SUMMARY PATIENT ALERT TO SELF THIS SHIFT. PATIENT SPEAKING IN FEW 3-6 WORD SENTENCES THIS AM. PATIENT STATES "I HAVE TO PEE IN A CUP" THIS AM. ATTEMPT TO HAVE PATIENT URINATE IN URINAL UNSUCCESSFUL. BLADDER PALPATED WITH PAINFUL RESPONSE FROM PATIENT. BLADDER SCAN CONDUCTED, >999 ML RESULT. NOTIFIED, Q6 BLADDER SCAN WITH STRAIGHT CATH FOR > 300 ORDERED. STRAIGHT CATH RESULTED IN 750 ML OUTPUT. PATIENT IMMEDIATELY RELAXED AND SLEPT MOST OF THE AFTERNOON AFTER CATH. BLADDER SCAN AT 1800 RESULTED IN 529 ML. STRAIGHT CATH PERFORMED, 350 OUTPUT. PATIENT ONCE AGAIN RESTING IN BED.
--- NOTE | 2020-11-28 04:27 | NUR ---
PT hyperalert does not sleep or sleeps for only minutes with eyes open. ON remote camera monitoring with several calls PT attempting to climb out of bed despite jeanine vest & bilat wrist restraints. He was straight cathed for 250 ml foul smelling cloudy urine after bladder scan PVR of greater than 300 ml. PT repeatedly removes attends & wets under himself requires multiple total bed & clothing changes. Continues to be on clinimix & lipids & has BG checks Q 4 hours as well as q 6 hour bladder scans. PT takes only bits of jello declines oral fluids.
[2020-11-28 05:28] LABS: Magnesium, Blood 2.4 mg/dL (1.6-2.4)
[2020-11-28 05:29] LABS: Phosphorus, Blood 3.7 mg/dL (2.5-4.9)
--- NOTE | 2020-11-28 07:16 | NUR ---
PT had several periods where he has shallow breathing followed by cessation of respirations & he has blank look on face. This lasts around 60 seconds & when roused he resumes breathing. Full code status, has seizure disorder, on IV keppra Q 12 hours.
[2020-11-28 11:30] LABS: Source, Urine Clean Catch
[2020-11-28 11:36] LABS: Appearance, Urine Cloudy (Clear); Bilirubin, Urine Neg (Neg); Blood, Urine 3+ (Neg); Color, Urine Yellow (P-Yellow); Glucose Qualitative, Urine Neg (Neg); Ketones, Urine Neg (Neg); Leukocyte Esterase, Urine 3+ (Neg); Nitrite, Urine Neg (Neg); Protein, Urine 2+ (Neg); Urobilinogen, Urine 1+ (Normal)
[2020-11-28 11:51] LABS: BASOPHILS ABSOLUTE AUTO 0.01 K/mm3 (0.00-0.23); BASOPHILS PERCENT AUTO 0 % (0-2); EOSINOPHILS ABSOLUTE AUTO 0.02 K/mm3 (0.00-0.68); EOSINOPHILS PERCENT AUTO 0 % (0-6); Hematocrit 37.8 % (37.0-53.0); Hemoglobin 12.6 g/dL (13.5-17.5); IMMATURE GRAN ABSOLUTE AUTO 0.04 K/mm3 (0.00-0.10); IMMATURE GRAN PERCENT AUTO 0 % (0-1); LYMPHOCYTES ABSOLUTE AUTO 0.39 K/mm3 (0.84-5.20); LYMPHOCYTES PERCENT AUTO 4 % (21-46); MONOCYTES ABSOLUTE AUTO 0.32 K/mm3 (0.16-1.47); MONOCYTES PERCENT AUTO 4 % (4-13); Mean Corpuscular HGB 31.6 pg (26.0-34.0); Mean Corpuscular HGB Conc 33.3 g/dL (31.5-36.5); Mean Corpuscular Volume 95 fL (80-100); Mean Platelet Volume 11.6 fL (9.1-12.4); NEUTROPHILS ABSOLUTE AUTO 8.23 K/mm3 (1.96-9.15); NEUTROPHILS PERCENT AUTO 91 % (41-73); Platelet Count 178 K/mm3 (150-400); RDW Coefficient Variation 13.1 % (11.7-14.2); RDW Standard Deviation 44.7 fL (35.1-46.3); Red Blood Cell Count 3.99 M/mm3 (4.30-5.90); White Blood Cell Count 9.01 K/mm3 (4.00-11.30)
[2020-11-28 12:02] LABS: PCO2 Arterial 33.7 mmHg (35-45); PO2 Arterial 70.9 mmHg (80-100); pH Blood Arterial 7.47 (7.35-7.45)
[2020-11-28 12:07] LABS: Alanine Aminotransfer (ALT/SGP 46 U/L (12-78); Albumin, Blood 2.5 g/dL (3.4-5.0); Albumin/Globulin Ratio 0.5 (0.8-1.8); Alk Phos 68 U/L (50-136); Anion Gap 3 mmol/L (6-16); Aspartate Aminotrans (AST/SGOT 21 U/L (12-37); Blood Urea Nitrogen 48 mg/dL (8-24); Bun/Creatinine Ratio 54.3 (12.0-20.0); CO2, Blood 26 mmol/L (21-32); Calcium, Blood 8.5 mg/dL (8.5-10.1); Chloride, Blood 112 mmol/L (98-108); Creatinine, Blood 0.88 mg/dL (0.60-1.20); Globulin, Blood 4.6 g/dL (2.2-4.0); Glomerular Filtration Rate >60 (60-); Glucose, Blood 240 mg/dL (70-99); Potassium, Blood 3.9 mmol/L (3.5-5.5); Sodium, Blood 141 mmol/L (136-145); Total Protein, Blood 7.1 g/dL (6.4-8.2)
[2020-11-28 12:16] LABS: White Blood Cells, Urine 50-100 /hpf (0-5)
[2020-11-28 12:17] LABS: Amorphous Light (0-Heavy); Bacteria Many /hpf; Squamous Epithelial Cells Not Seen /hpf (Few)
[2020-11-28 12:18] LABS: Triple Phosphate Crystals Few /hpf
[2020-11-28 13:05] LABS: Free Thyroxine 1.28 ng/dL (0.70-1.60); Thyroid Stimulating Hormone 2.78 uIU/mL (0.360-4.800); Triiodothyronine, Free 1.42 pg/mL (2.18-3.98)
[2020-11-28 13:37] LABS: Source, Urine Catheter
[2020-11-28 13:46] LABS: Appearance, Urine Cloudy (Clear); Bilirubin, Urine Neg (Neg); Blood, Urine 4+ (Neg); Color, Urine Yellow (P-Yellow); Glucose Qualitative, Urine 3+ (Neg); Ketones, Urine Neg (Neg); Leukocyte Esterase, Urine 3+ (Neg); Nitrite, Urine Pos (Neg); Protein, Urine 2+ (Neg); Specific Gravity, Urine 1.015 (1.003-1.022); Urobilinogen, Urine 1+ (Normal)
[2020-11-28 13:59] LABS: Amorphous Heavy (0-Heavy); Bacteria Many /hpf; Mucus Light (0-Heavy); Red Blood Cells, Urine TNTC /hpf (0-2); Squamous Epithelial Cells Rare /hpf (Few); Transitional Epithelial Cells Rare /hpf (0-Rare); White Blood Cells, Urine TNTC /hpf (0-5)
--- NOTE | 2020-11-28 14:27 | NUR ---
TRANSFER TO ICU PT TRANSFERED TO ICU ROOM 3 AT 1310 VIA BED. PT IS SOMNOLENT UPON ARRIVAL. PT IS DIFFICULT TO AROUSE. PT TRANSFERED TO ICU BED. PT IS MORE ALERT AFTER TRANSFER FOR ONLY BREIF PERIOD. PT ANSWERS SIMPLE QUESTIONS, BUT IS CONFUSED. PT WITH LONG INTERMITTENT PERIODS OF APNEA WHILE RESTING. VITAL SIGNS STABLE, PT ON ROOM AIR, NO DROP IN SPO2 WITH PERIODS OF APNEA. POWERGLIDE TO JAMAR IN PLACE WITH CLINIMIX INFUSING AT 75 ML/HR. THOMPSON TEMP PROBE PLACED, CLOUDY YELLOW URINE OUTPUT NOTED. UA SENT. PT WITH SCATTERED SCABS THROUGHOUT BODY. SKIN TEARS TO BUE'S NOTED. WILL CONTINUE TO MONITOR.
--- NOTE | 2020-11-28 15:58 | NUR ---
TRANSFER NOTE PATIENT ALERT TO SELF THIS SHIFT. PATIENT ONLY AWAKE FOR SHORT PERIODS, USUALLY LESS THAN 1 MINUTE. PATIENT SLEEPING WITH APNIC PERIODS UP TO 30-45 SECONDS. PULSE OX MONITORED WITH DROPS FROM 100 TO LOW 90S COMMON DURING APNIC PERIODS, OCCASIONAL DROPS TO THE MID 70S. BRADICARDIA DURING APNIC PERIODS TO THE LOW 40S FROM THE 60S. PATIENT TRANSFERED TO ICU DUE TO PATIENT'S CONFUSED STATE REQUIRING RESTRAINTS AND PATIENTS NEED FOR BIPAP FOR O2. PATIENT ASLEEP DURING TRANSFER PERIOD. REPORT TO FAUSTO BROWN, IN ICU.
--- NOTE | 2020-11-28 17:59 | NUR ---
SHIFT SUMMARY NO ACUTE CHANGES THIS AFTERNOON. PT REMAINS CONFUSED AND SOMNOLENT. PT SPEAKS SOME WORDS, BUT SPEECH IS NONSENSICAL. VITAL SIGNS HAVE REMAINED STABLE. PT ON ROOM AIR. NO RESPIRATORY DISTRESS NOTED. PT CONTINUES TO HAVE BREIF PERIODS OF APNEA WHILE AT REST. POWERGLIDE TO JAMAR REMAINS IN PLACE WITH CLINIMIX INFUSING AT 75 ML/HR. POWERGLIDE INSERTED TO ORIN, SALINE LOCKED. THOMPSON TEMP PROBE REMAINS IN PLACE WITH MILKY/CLOUDY YELLOW URINE OUTPUT NOTED. PT SCABS AND SKIN TEARS REMAIN UNCHANGED. UPDATED PT SPOUSE AT BEDSIDE. WILL CONTINUE TO MONITOR AND REPORT OFF TO ONCOMING RN.
--- NOTE | 2020-11-28 21:29 | NUR ---
PT AGGITATED, YELLING OUTY, ATTEMPTING TO GET OOB, ATTEMPT TO HIT STAFF. 5 MG ZYPREXIA GIVEN IM, RESTRAINTS APPLIED AND DOCUMENTED, DEVELOPER PROGRAMMER NOTIFIED.
--- NOTE | 2020-11-29 00:08 | NUR ---
REASSESS PT CONTINUES TO BE CONFUSED, THINKS IS IN ROOM, YELLING OUT AT TIMES, ATTEMPT TO PULL ANDREA, MITTS ADDED TO RESTRAINTS. CONTINUE TO ASSESS
[2020-11-29 03:42] LABS: Magnesium, Blood 2.2 mg/dL (1.6-2.4)
[2020-11-29 03:43] LABS: Phosphorus, Blood 3.5 mg/dL (2.5-4.9)
--- NOTE | 2020-11-29 04:14 | NUR ---
REASSESS PT REMAINS IN RESTRAINTS BILAT WRIST AND MITTS DUE TO PULLING AT LINES AND THOMPSON. ORAL CARE DONE, REPOSITION IN BED, PT REMAINS CONFUSED TO WHERE HE IS, KNOWS YEAR, SELF, NOT PLACE. PT SLEEPS ON AND OFF, BUT WHEN AWAKE, ATTEMTPS TO KICK FEET OUT OF BED AND WANTS TO GET UP. CONTINUE TO ASSESS.
--- NOTE | 2020-11-29 04:46 | NUR ---
pt transfer to medical on ra via bed, report given to Ector Asher RN.
--- NOTE | 2020-11-29 05:14 | NUR ---
75 YR OLD MALE TRANSFERRED FROM THE ICU, WITH DX OF ACUTE ENCEPHALOPATHY. IN BILAT WRIST RESTRAINTS AND BILATERAL MITTENS TO PREVENT PT PULLING OUT HIS THOMPSON CATHETER. AWAKE. VERBAL RESPONSE CONFUSED. CALL LIGHT IN REACH. RAILS UP X 3.
--- NOTE | 2020-11-29 06:10 | NUR ---
SHIFT SUMMARY PT WAS RECEIVED FROM THE ICU WITH DX OF ACUTE ENCEPHALOPATHY. BILATERAL WRIST RESTRAINTS AND MITTENS ON DUE TO MULTIPLE ATTEMPTS TO PULL OUT LINES/THOMPSON CATH. THOMPSON CATH DRAINING. CLINIMIX INFUSING AT 75 ML/HR ORDERED AND Q 6 HR ACCU CHECKS ORDERED. ACCU CHECK THIS AM: 140. CALL LIGHT IN REACH. CURRENTLY PT SMILING WHEN SPOKEN TO BUT REMAINS CONFUSED WITH HIS ANSWERS.
--- NOTE | 2020-11-29 10:45 | NUR ---
PER IF NO CARDIAC EVENTS CAN D'C. PER U TECH NO EVENTS. D'C ORDER WRITTEN
--- NOTE | 2020-11-29 12:34 | NUR ---
PATIENT PULLED POWERGLIDE IN 1/ WITH BLOOD TO PATIENT CHEST,ABD AND BED AT ABOUT 0900. WAS PULLING ON THOMPSON. TOOK TELE OFF. PATIENT SEEMED TO BE UNAWARE OF WHAT HE DID. PATIENT POWERGLIDE TO LEFT ARM TAKEN OUT, CATH INTACT. BED AND PATIENT CLEANED. LINEN CHANGED. PATIENT ABLE TO WIGGLE HIS FINGERS OUT OF MITTS. ALERT TO SELF. REFUSED P.O. MEDS THIS AM. ATTEMPT TO GIVE MEDS AGAIN WHEN PATIENT ASKED IF HE IS HUNGRY AND STS "YES". WHEN ATTEMPT TO GIVE APPLESAUCE JUST 10 SECONDS AFTER PATIENT STS HE IS HUNGRY, PATIENT REFUSES. PATIENT MOVED TO SCU WHERE THERE ARE MORE STAFF TO CARE FOR PATIENT. REPORT TO KHUSHBOO LAMBERT.
--- NOTE | 2020-11-29 12:35 | NUR ---
Assumed Care Transferred from [facility] to 352. Patient sleeping during transfer. Bilateral mitts and wrist restraints in place. Mepilexes on BUE removed, it appears patient has scabs scattered throughout extremities. Vaz patent and draining. AO to self. Personal belongings in room. Bed in lowest position, call light near, camera verified on and patient in sight.
--- NOTE | 2020-11-29 18:07 | NUR ---
came back and we reviewed more information she gave me power of employee benefits attorney. She states he would not want recusitation. She is not sure what advance directive says. She will fax it in the miorning then call me.
--- NOTE | 2020-11-29 19:42 | NUR ---
Shift Summary A/O to self. More awake today, tolerating PO well. Had lunch and dinner. Patient was able to get out of mitts twice, camera remains on and patient in sight. Continuous biox to R ear. Sats @ 97% on RA. Still pulling on rodriguez catheter. Clinimix @ 75 with lipid infusing. visited later this evening and spoke with Emilee Palliative RN (see Palliative Care note). Code status to be addressed tomorrow between and Emilee. Report given to oncoming RN.
--- NOTE | 2020-11-30 07:33 | NUR ---
SHIFT SUMMARY ALERT TO SELF. NON-SENSICAL SPEECH. DEFIANT WITH CARE AT TIMES. NO C/O PAIN/DISCOMFORT OR SIGNS/SX. DID NOT REST MUCH OVERNIGHT. CLINIMIX AND LIPIDS CONTINUE TO INFUSE TO PG IN JAMAR WITHOUT COMPLICATIONS. CONTINUES TO PULL AT RESTRAINTS ATTEMPTING TO GRAB THOMPSON AT TIMES. REMAINS IN MITTS WITH BILATERAL SOFT WRISTS. ROUTINE ATTENDS CHECKS. REPOSITIONING TOLERATED. THOMPSON SECURED AND DRAINING TO GRAVITY. BED REMAINS IN LOWEST POSITION; ALARM ON. CONTINUE WITH CURRENT PLAN OF CARE. REPORT GIVEN TO ONCOMING RN.
--- NOTE | 2020-11-30 18:02 | NUR ---
Pt sent in Advance directive and POA. Pt stated he would not want life sustaing or prolonging interventions. AD was from 2003. Suggested we complete an POLST. Careful review with of CPR ventilation and dialysis. Review of ICU care. After review agrees he would not do well after cpr and would not want ventilatior support. We settled on DNR limeted medical care he would go to ICU for iv medications and wear a bipap for limeited time. Polst completed and physician notified. Educated pt on differnce in documents and process. Will follow up needs support.
--- NOTE | 2020-11-30 19:31 | NUR ---
SHIFT SUMMARY ELIESER DENIED PAIN THIS SHIFT. VISITED. SENIOR TEST ANALYST CHANGED TO NPO FOR UNSAFE SWALLOW. CBG Q6. RESTRAINTS IN PLACE TO KEEP FROM PULLING AT THOMPSON AND POWERGLIDE, AGITATED, PULLS AT LINES/LINENS. THOMPSON IN PLACE, DRAINING WELL. ORIENTED TO SELF ONLY. TURNED REGULARLY, COCCYX INTACT. BED ALARM ON, CALL LIGHT IN REACH, REPORT GIVEN TO NIGHT NURSE
[2020-12-01 05:00] LABS: BASOPHILS ABSOLUTE AUTO 0.01 K/mm3 (0.00-0.23); BASOPHILS PERCENT AUTO 0 % (0-2); EOSINOPHILS ABSOLUTE AUTO 0.04 K/mm3 (0.00-0.68); EOSINOPHILS PERCENT AUTO 1 % (0-6); Hematocrit 36.7 % (37.0-53.0); Hemoglobin 12.6 g/dL (13.5-17.5); IMMATURE GRAN ABSOLUTE AUTO 0.08 K/mm3 (0.00-0.10); IMMATURE GRAN PERCENT AUTO 1 % (0-1); LYMPHOCYTES ABSOLUTE AUTO 1.11 K/mm3 (0.84-5.20); LYMPHOCYTES PERCENT AUTO 16 % (21-46); MONOCYTES ABSOLUTE AUTO 0.46 K/mm3 (0.16-1.47); MONOCYTES PERCENT AUTO 7 % (4-13); Mean Corpuscular HGB 31.8 pg (26.0-34.0); Mean Corpuscular HGB Conc 34.3 g/dL (31.5-36.5); Mean Corpuscular Volume 93 fL (80-100); Mean Platelet Volume 12.5 fL (9.1-12.4); NEUTROPHILS ABSOLUTE AUTO 5.39 K/mm3 (1.96-9.15); NEUTROPHILS PERCENT AUTO 76 % (41-73); Platelet Count 163 K/mm3 (150-400); RDW Coefficient Variation 13.2 % (11.7-14.2); RDW Standard Deviation 43.9 fL (35.1-46.3); Red Blood Cell Count 3.96 M/mm3 (4.30-5.90); White Blood Cell Count 7.09 K/mm3 (4.00-11.30)
[2020-12-01 06:03] LABS: Albumin, Blood 2.3 g/dL (3.4-5.0); Anion Gap 4 mmol/L (6-16); Blood Urea Nitrogen 32 mg/dL (8-24); Bun/Creatinine Ratio 38.1 (12.0-20.0); CO2, Blood 26 mmol/L (21-32); Calcium, Blood 8.1 mg/dL (8.5-10.1); Chloride, Blood 109 mmol/L (98-108); Creatinine, Blood 0.84 mg/dL (0.60-1.20); Glomerular Filtration Rate >60 (60-); Glucose, Blood 119 mg/dL (70-99); Magnesium, Blood 2.1 mg/dL (1.6-2.4); Phosphorus, Blood 2.8 mg/dL (2.5-4.9); Potassium, Blood 3.7 mmol/L (3.5-5.5); Sodium, Blood 139 mmol/L (136-145)
--- NOTE | 2020-12-01 06:28 | NUR ---
SHIFT SUMMARY NO INDICATIONS OF PAIN/DISCOMFORT, ATTEMPTING TO REMOVE MITTS & PANTS T/O THE SHIFT, 1 AMP D50 ADMIN @ 3341 FOR CBG 69, HUMALOG SS CHANGED FROM HIGH TO LOW, NO OTHER CHANGES THIS SHIFT, BED ALARM ACTIVE, REPOS T/O THE NIGHT, BED ALARM ACTIVE, WILL CONT TO MONITOR UNTIL REPORT GIVEN TO DAY RN.
--- NOTE | 2020-12-01 14:47 | NUR ---
PT WAS GIVEN 2MG IV ATIVAN FOR RE-SEDATION FOR MRI (PT NOT ALLOWED TO BE IN RESTRAINTS IN MRI). THIS INCREASED HIS APNEIC BREATHING, BREATHING PAUSES OF 1 MINUTE, DESATS TO 86%. DR LYNCH CALLED. SHE WANTS ROMAZECOM GIVEN AND CANCEL MRI. WILL GIVE AND CONTINUE TO MONITOR
--- NOTE | 2020-12-01 16:02 | NUR ---
1515--pt's anpneic pauses much shorter and much less frequent (only 30 seconds every 5-6 minutes) and he doesn't desat below 90%. dr henderson at bedside and is aware of pt's improved resp status. during the apneic epsisode prior to romazecom dose, he was also very agitated, adding ativan to pt's allergy list as an adverse reaction
--- NOTE | 2020-12-01 19:21 | NUR ---
SHIFT SUMMARY ELIESER WAS MORE LETHARGIC THIS SHIFT. NOT SAFE FOR PO INTAKE, HE WOULDN'T STAY AWAKEK LONG ENOUGH TO SWALLOW SAFELY. DATA STEWARD FAILED ASSESSMENT. PER DR LYNCH, SHE WANTS CYTOMEL GIVEN EVEN IF STRICT NPO, LONG PT CAN STAY AWAKE ENOUGH TO SWALLOW. THOMPSON INTACT AND DRAINING. LANTUS DECREASED DUE TO HYPOGLYCEMIA PREVIOUS SHIFT AND INCREASED SSI. RESTRAINTS STILL IN PLACE, CONTINOUS VIDEO MONITORING. VISITED AND UPDATED. ATTEMPTED MRI, ATIVAN GIVEN--AGITATED HIM AND DECREASED OXYGEN SATS (SEE PREVIOUS NOTE). UNABLE TO HAVE MRI AT THIS TIME DUE TO INABILITY TO HOLD STILL. PER DR LYNCH, IF THEY REALLY WANT IT, THEY WILL HAVE TO DO IT UNDER GENERAL ANESTHESIA. SHE STATES THEY MAY CONSIDER CT TOMORROW. ELIESER SHOWED NO S/S PAIN, MUCH LESS VERBAL THIS SHIFT. BED ALARM ON, FREQUENT CHECKS, REPORT GIVEN TO NIGHT NURSE
--- NOTE | 2020-12-02 04:20 | NUR ---
SHIFT SUMMARY PT LESS VERBAL THEN PREVIOUS NIGHT, UNABLE TO COMMUNICATE NEEDS/WANTS (PREVIOUS NIGHT PT REQESTED "OLVERA & EGGS AND A PAIR OF SCISSORS", PT WAS TALKING IN SENTENCES AND ABLE TO ANSWER QUESTIONS), AWAKE AND PULLING ON RESTRAINTS & ATTEMPTING TO DISROBE T/O THE NIGHT, BEDRESTING AT THIS TIME, BED ALARM ACTIVE, WILL CONT TO MONITOR UNTIL REPORT GIVEN TO DAY RN.
--- NOTE | 2020-12-02 19:30 | NUR ---
SHIFT SUMMARY PT IS ALERT TO SELF. AT START OF SHIFT PT WAS SLEEPING AND WAS UNABLE TO GIVEN ORAL MEDS. PT HAS BEEN TRYING TO GET OUT OF MITS AND BED THROUGH OUT SHIFT. THIS AFTERNOON PT MORE AWAKE AND WAS ABLE TO GIVEN AFTERNOON ORAL MEDS. NO ACUTE CHANGES THIS SHIFT.
--- NOTE | 2020-12-03 05:28 | NUR ---
SHIFT SUMMARY PT HAS BEEN AWAKE FOR MOST OF THE NIGHT, DESPITE RECEIVING MELATONIN ORDERED FOR SLEEP. PT ACTIVELY CONTINUES TO PICK AND PULL AT RESTRAINTS, AND ATTEMPTS TO PULL ON THOMPSON WITH MITTS ON. PT SWINGS HIS LEGS OFF AND ON THE BED. PT A/O TO SELF, BUT ABLE TO RECALL SOME MEMORIES FROM HIS PAST. HE SPOKE ABOUT HIS GRANDCHILDREN AND WHEN ASKED HOW LONG HE HAD BEEN HE REPLIED "45 YEARS". WHEN ASKED IF HE WAS HAVING ANY PAIN HE REPLIED WITH "NO". MOST QUESTIONS THAT ARE ASKED HE SIMPLY LOOKS AT YOU AND REPLIES WITH ONLY A LAUGH. THOMPSON IN PLACE PATENT AND DRAINING. IV ANTIBIOTICS CONTINUED ORDERED. CLINIMIX/LIPDS INFUSING. PT TOLERATED HIS MEDS CRUSHED IN APPLESAUCE. ASPIRATION PRECAUTIONS MAINTAINED. BED IN LOWEST POSITION, CALL LIGHT WITHIN REACH.
--- NOTE | 2020-12-03 17:16 | NUR ---
SHIFT SUMMARY PT AXO X0 THIS SHIFT. PT UNABLE TO FOLLOW INSTRUCTIONS OR ANSWER QUESTIONS APPROPRIATELY. PT WAS ABLE TO SWALLOW AFTERNOON ORAL MEDICATIONS CRUSHED IN APPLESAUCE. PT TOLERATED WELL. PER DR LYNCH, PT TOOK MORNING MED THAT HE MISSED THIS MORNING. VSS. CLINIMIX RUNNING PER EMAR. IV PATENT. MEPILEX TO HEELS BILATERALLY. PT CONTINUES TO BE IN MITT AND BILATERAL WRIST RESTRAINTS TO PROTECT IV AND THOMPSON. THOMPSON IN PLACE, PATENT AND DRAINING. ORAL CARE PER ORDERS. BED IN LOW POSITION, CALL LIGHT WITHIN REACH.
--- NOTE | 2020-12-04 04:51 | NUR ---
SHIFT SUMMARY PT HAS BEEN AWAKE MOST OF THE NIGHT, TAKING VERY SMALL CAT NAPS OFF AND ON. PT HAD A BRIEF LUCID MOMENT AT THE START OF THE SHIFT. PT WAS ASKING ABOUT HIS , AND WAS INQURING ABOUT WHERE SHE WAS. PT ASKED TO CALL HIS AND RECALLED TO MEMORY HER PHONE NUMBER. WHEN ASKED WHAT YEAR IT WAS PT LOOKED AT THE BOARD AND TOLD ME THE YEAR. HE WAS ALSO ABLE TO FOLLOW SOME DIRECTIONS. HOWEVER, THE NIGHT PROGRESSED, PT RETURNED TO HIS BASELINE LEVEL OF CONFUSION. HE CONTINUES TO PICK AND PULL ON RESTRAINTS, DISROBES AND ATTEMPTS TO PULL OUT THOMPSON CATHETER SEVERAL TIMES THIS SHIFT. PT SWINGS LEGS OFF AND ON THE BED AND TRIES TO GET OUT OF BED. PT PLESANTLY CONFUSED, HE LAUGHS AND SMILES AT STAFF WHEN SPOKEN TO. VITALS ARE STABLE. THOMPSON IN PLACE PATENT AND DRAINING. BED IN LOWEST POSITION, CALL LIGHT WITHIN REACH.
--- NOTE | 2020-12-04 12:19 | NUR ---
REMOVED THOMPSON PER ORDER, INFORMED RESOURCE SPECIALIST TEACHER AND PT, NO NEGATIVE SIDE EFFECTS NOTED, WILL CONTINUE TO MONITOR AND TREAT
--- NOTE | 2020-12-04 18:12 | NUR ---
Met with pt today, he was smiling and albe to say, "How are you?" He was currently wearing mits on his hands to keep him safe at this time. Nurse Jet states pt has been like this as a baseline today; has been speaking out some, able to form words but no sentences. He is unable to swallow today. Attmepted to call , no answer. Will try again tomorrow.
--- NOTE | 2020-12-04 20:03 | NUR ---
sleepy but alert at times recognized and nurse but would forget that the nurse had been in to see him and that had not been in an accident, medicated as prescribed, call light by hands, frequent checks, no acute changes noted during shift, bsr shared with noc nurse and pt
--- NOTE | 2020-12-05 07:17 | NUR ---
SHIFT SUMMARY PATIENT ALERT AND ORIENTED TO SELF ONLY. HAD NO COMPLAINTS OF PAIN OR SHORTNESS OF BREATH. PATIENT CONTINUES TO BE IN BILATERAL SOFT WRIST RESTRAINTS AND MITTS. PATIENT DID NOT SLEEP MUCH OVERNIGHT. POWERGLIDE PATENT AND INFUSING. BED IN LOWEST POSITION WITH WHEELS LOCKED AND ALARM ON. CALL LIGHT WITHIN REACH. REPORT GIVEN TO ONCOMING RN.
--- NOTE | 2020-12-05 17:24 | NUR ---
SHIFT SUMMARY PT SLEEPY AT START OF SHIFT. WOULD OPEN HIS EYES OFF AND ON WHEN BEING CHANGED FOR INCONTINENCE OR REPOSITIONING. PT TOO SLEEPY TO ATTEMPT SWALLOW EVAL TODAY, BUT PT LATER WOKE AND HAS REMAINED AWAKE ALL AFTERNOON. IMAGING CALLED TO HAVE SCREENING FORM COMPLETED FOR MRI. PT UNABLE TO ANS QUESTIONS. CALLED FOR FORM INFORMATION. BUT IMAGING LATER REPORTED STILL UNABLE TO DO MRI D/T PT BEING EITHER TO SLEEPY OR UNABLE TO BE STILL. PT HAS BEEN VERY BUSY AND ACTIVE ALL AFTERNOON. CONFUSED AND DISORIENTED, UNABLE TO FOLLOW DIRECTIONS. PT'S TO AT THIS TIME. PT IS NOW TALKATIVE TO . NO C/O. CALL LT IN REACH. BED ALARM ON FOR SAFETY.
--- NOTE | 2020-12-06 06:22 | NUR ---
MANGLE TENDER SUMMARY PT HAS BEEN ALERT MOSTLY ALL SHIFT. PT HAS BEEN VERY TALKATIVE, NONSENSICAL SPEECH. HE IS A/O X0. PT MOVES AROUND A LOT IN BED AND AGITATED AT TIMES. DENIES PAIN, SOB, NAUSEA. VSS. INCONTIENT TO STOOL AND URINE. CALL LIGHT WITHIN REACH. BED ALARM ON.
[2020-12-06 06:44] LABS: Free Thyroxine 1.16 ng/dL (0.70-1.60); Thyroid Stimulating Hormone 0.919 uIU/mL (0.360-4.800)
--- NOTE | 2020-12-06 18:45 | NUR ---
PATIENT CONTINUES TO BE VERY CONFUSED. REMAINS IN SOFT WRIST RETRAINTS AND MITTS. NPO DUE TO SEDATION AT TIMES. ABLE TO TAKE PILLS CRUSHED IN APPLESAUCE. INCONTINENT OF URINE/STOOL. MEPILEX DRESSINGS TO L ARM AND R HEEL REMAIN C/D/I. VSS, ON RA. DENIES ANY PAIN OR DISCOMFORT. AT BEDSIDE THIS EVENING AND WOULD LIKE TO SPEAK WITH THE DOCTOR. DR. LYNCH NOTIFIED AND WILL CONTACT HER TOMORROW, ALL NUMBERS UP ON THE BOARD.
--- NOTE | 2020-12-06 20:54 | NUR ---
CALL TO HOSPITALIST / PT FACE- FOREHEAD AND CHEEKS RED APPEARS TO HAVE HIVES ON FOREHEAD AND CHEEKS, BOTH RED AND RAISED. AIRWAY INTACT. PT RESPS REGULAR, EVEN, NON-LABORED. NO LIP OR TONGUE SWELLING. RECIEVED ORDERS TO ADMINISTER BENADRYL 25MG P0 Q 8 HRS X 3 DOSES, THEN CHANGE TO PRN X 3 MORE DOSES. ADD PEPCID 20MG IV BID X 2 DAYS.
--- NOTE | 2020-12-07 05:54 | NUR ---
SHIFT SUMMARY: VSS. AFEB. A/OX1. WRIST RESTRAINTS AND MITTS ON BILATERALLY. PT CONTINUES TO REACH FOR IV LINES. PULLS OFF CLOTHING, ATTENDS, AND BEDDING. ATTEMPTS TO REMOVE RESTRAINTS. HANGS LEGS OVER SIDE OF BED. INCONTINENT. MOSTLY MAKES NON-SENSICAL STATEMENTS. OCCASIONALLY IS COHERENT- ONCE ASKING STAFF TO LEAVE HIM ALONE. SMILES AND CHUCKLES A LOT AT STAFF. CLINIMIX INFUSING CONTINUOUSLY. REDNESS AND RAISED AREAS ON FACE ARE STILL PRESENT THIS AM, BUT IMPROVED SLIGHTLY. WCTM.
--- NOTE | 2020-12-07 14:13 | NUR ---
Pt continues to speak non-sensical, and currently in restraints for safety. Bonny Valiente as assessed this pt, and states he isn't getting enough nutrition with Clinimix and states he would need a feeding tube to mantkng . He is unable to a make decisions for homelf, and currently DNR states with limited intervention. Will attemtp to contact pt's .
--- NOTE | 2020-12-07 18:17 | NUR ---
PATIENT WAS DIFFICULT TO AROSE THROUGHOUT THE DAY. MORNING MEDS HELD DUE TO ASPIRATION RISK. THIS EVENING PATIENT WOKE AND WAS ALERT AND ORIENTED TO SELF, DATE AND TIME. PATIENT IS ON BEDREST AND NPO. WRIST RESTRAINTS ARE IN PLACE, BED ALARM IS SET, AND PATIENT IS ON REMOTE MONITORING. 3 SIDE RAILS ARE UP. THE PATIENT IS INCONTINENT OF URINE ATTENDS CHANGED FREQUENTLY GOOD OUTPUT FOR THE DAY. SKIN WITH MULTIPLE SCABS AND SCRATCHES, ELBOWS REDDENED AND ELBOW PROTECTORS PLACED. VITAL SIGNS ARE STABLE AND THE PATIENT REMAINS ON ROOM AIR.
--- NOTE | 2020-12-08 05:24 | NUR ---
SHIFT SUMMARY: VSS. AFEB. 02 96-100% ON RA. RHONCHI AUSCULTATED IN R MID LOBE. UNEVEN RESP RISE. COUGH ENCOURAGED, WEAK. RESPS NON-LABORED. PT SLEPT MINIMALLY. AWAKE, TALKING A LOT TO SELF AND STAFF. TELLS STORIES, NONSENSICAL. DOES NOT ANSWER QUESTIONS. PT DID AT ONE POINT ASKED IF HE WAS STILL IN THE HOSPITAL AND ASKED ABOUT HIS MEDS. RESTRAINTS IN PLACE TO PROTECT LINES. PT CONTINUES TO BE IMPULSIVE AND ATTEMPTS TO GET OUT OF BED ON SEVERAL OCCASIONS. NO SAFETY AWARENESS. AAO TO SELF. INCONTINENT AND VOIDS HEAVILY. CLINIMIX CONTINUOUSLY ORDERED. PT REMAINS NPO AT THIS TIME. CHEEKS AND FOREHEAD MORE RED AND SWOLLEN AT THE START OF THE NIGHT. PRN BENADRYL ADMINISTERED- IMPROVED THIS AM. NO ACUTE OVERNIGHT EVENTS, WCTM.
--- NOTE | 2020-12-08 06:05 | NUR ---
SHIFT SUMMARY: VSS. AFEB. 02 96-100% ON RA. LSCTA. A/O TO SELF ONLY. SLEPT MINIMALLY. AWAKE, TALKING A LOT TO SELF AND STAFF. TELLS STORIES, NONSENSICAL. DOES NOT ANSWER QUESTIONS. PT DID AT ONE POINT ASK IF HE WAS STILL IN THE HOSPITAL AND ASKED ABOUT HIS MEDS. RESTRAINTS IN PLACE TO PROTECT LINES. PT CONTINUES TO BE IMPULSIVE AND ATTEMPTS TO GET OUT OF BED ON SEVERAL OCCASIONS. NO SAFETY AWARENESS. INCONTINENT AND VOIDS HEAVILY. CLINIMIX CONTINUOUSLY OREDERED. PT REMAINS NPO AT THIS TIME. CHEEKS AND FOREHEAD MORE RED AND SWOLLEN AT THE START OF THE NIGHT. PRN BENADRYL ADMINISTERED-IMPROVED THIS AM. NO ACUTE OVERNIGHT EVENTS. WCTM.
--- NOTE | 2020-12-08 18:01 | NUR ---
pt more frail attetmpted contact with .
--- NOTE | 2020-12-08 20:19 | NUR ---
SHIFT SUMMARY- PT ALERT, NOT ORIENTED AT ALL. PT SLEPT T/O THE DAY WAKING FOR BRIEF MINUTES AND THEN BECOMING NON-RESPONSIVE THE NEXT. IS AWARE. NEARLY ALL MEDICATION IS ORDERED IV. DR AWARE OF ASPIRATION PRECAUTIONS AND PO MEDS BEING HELD. PASSED ON TO NIGHT RN IN BEDSIDE REPORT. PT ALERT AND AWAKE PULLING ON RESTRAINTS PT HAS MANAGED TO GET THE MITTS OFF, THEY ARE IN PLACE TO PROTECT THE PT PG WHICH IS INFUSING HIS CLINIMIX, LIPIDS AND IV KEPPRA WELL ALL OTHER MEDS. PT CAME IN TODAY TO VISIT AND MET WITH DISCHARGE PLANNING. PT IN BED ALL INFO PASSED ON IN BEDSIDE REPORT TO NIGHT RN.
--- NOTE | 2020-12-09 04:32 | NUR ---
SHIFT SUMMARY PATIENT HAD NO ACUTE CHANGES OBSERVED. NOT ORIENTED AT THIS TIME WITH NONSENSICAL SPEECH. BEDREST AND NPO. POWERGLIDE JAMAR INTACT. LIPIDS AND CLINIMIX/M.V.I. INFUSING. CBG Q6 CHECK 120 AND 88. BILATERAL WRIST AND MITT RESTRAINTS PER ORDERS. IV KEPPRA INFUSED. VSS/AFEBRILE. NO S/SX OF PAIN, SOB, AND N/V. BED IN LOWEST POSITION AND ALARM ACTIVATED. WILL CONTINUE TO MONITOR UNTIL DAY SHIFT NURSE ASSUMES CARE.
--- NOTE | 2020-12-09 08:49 | NUR ---
ASSUMED CARE OF PATIENT AT 0845. SBAR REPORT RECIEVED FROM FAUSTO GUPTA.
--- NOTE | 2020-12-09 09:41 | NUR ---
Pt resting in bed upon arrival with his eyes closed. Pt currently in soft restraints for his safety. This RN did not disturb Pt at this time. Pt appears comfortable with no S/S of distress at this time. Spoke with Bedside RN Lara, Dr Barragan, and discussed case. Attempted to contact Pt's spouse Everette. Unable to leave message due to voice mail box being full. Called and spoke with Pt's daughter Mackenzie. Mackenzie will attempt to contact Amber with request for return call to this RN. Palliative Care will remain available.
--- NOTE | 2020-12-09 15:45 | NUR ---
Joint meeting with Pt's rosa Clark, this RN, Caremanager Rivera, Dr Barragan, and Bedside RN Lara. Pt resting in bed with his eyes closed for most of the meeting. Engaged in therapeutic discussion regarding options. Therapeutic listening offered and questions answered. Amber reports Pt would not want artifical nutrition and at this stage in his life would want to focus on quality and comfort. Amber reports Pt's children are also in agreement. Discussed comfort care and hospice. Educated on comfort care and hospice philosophy with V/U made by Amber. Scotty discusses options for placement. This RN discussed with Amber of medications that will be D/C and medications that will be added for comfort. Amber is in agreement with plan. Placed order for comfort care, comfort care order set, D/C maintenance medications per V/O from Dr Barragan. Keniyara IV switched to oral solution for comfort. Palliative Care will remain available for symptom management and supportive visits.
--- NOTE | 2020-12-09 22:19 | NUR ---
PATIENT HAVING INCREASED AGITATION. PULLING OFF ATTENDS, BRUCE, SHEETS AND PILLOWS. NOT REDIRECTABLE OR ORIENTED AT THIS TIME.
--- NOTE | 2020-12-09 23:39 | NUR ---
HOSPITALIST STEPHANIE ROSARIO ORDERED BILATERAL SOFT WRIST RESTRAINTS AND MITTS. SUZIE VEST ALREADY IN PLACE. PATIENT AGITATED AND PULLING BRUCE, ATTENDS, COVERS, AND PILLOWS OFF BED. NOT REDIRECTABLE OR ORIENTED AT THIS TIME.
--- NOTE | 2020-12-10 04:53 | NUR ---
SHIFT SUMMARY PATIENT ON COMFORT CARE. HAD INCREASED AGITATION PULLING ATTENDS, COVERS, PILLOWS, AND BLANKETS OFF. HOSPITALIST STEPHANIE FARM CONSULTANT ORDERED BILATERAL SOFT WRIST RESTRAINTS AND MITTS THAT WERE DC ON DAY SHIFT. ORAL HALDOL GIVEN FOR AGITATION. REDUCED AGITATION TWO HOURS LATER. ALERT TO SELF AND BEDREST. NOT ABLE TO REDIRECT OR REORIENT. NONSENSICAL SPEECH. NO S/SX OF PAIN, SOB, AND N/V. BED IN LOWEST POSITION AND ALARM ACTIVATED. WILL CONTINUE TO MONITOR UNTIL DAY SHIFT NURSE ASSUMES CARE.
--- NOTE | 2020-12-10 11:14 | NUR ---
PATIENT CALMER AFTER RECIEVED ANALGESIC PER EMAR THIS MORNING. ROUNDED WITH HOSPITALIST AT THIS TIME AND STATES IS APPROPRIATE FOR NURSING TO GIVE ANALGESIC [place] AGITATION IS PRESENT, DUE TO SEVERITY OF DEMENTIA AND IMPAIRED COMMUNICATION\PAIN RESPONSE. AGITATION BEHAVIORS WERE NOT IMPROVED WITH HALDOL YESTERDAY EVENING, NOR AT HS, PER HS RN.
--- NOTE | 2020-12-10 11:45 | NUR ---
Pt resting in bed and is in soft restraints. Dr Barragan and Bedside RN Lara at bedside. Pt has been experiencing frequent and significant agitation. Haloperidol given last evening with little benefit. Roxanol given this AM with good effect. No family at bedside at this time. Dr Barragan will review medications for comfort. Palliative Care will remain available.
--- NOTE | 2020-12-10 23:32 | NUR ---
PATIENT SLEEPING AT THIS TIME. ON COMFORT CARE. LESS AGITATED FIRST PART OF SHIFT. WILL CONTINUE TO MONITOR.
--- NOTE | 2020-12-11 04:23 | NUR ---
SHIFT SUMMARY PATIENT ON COMFORT CARE. SOMNOLENT T/O SHIFT AFTER RECEIVING ROXANOL ON DAY SHIFT. ALERT TO SELF AND BEDREST. NONSENSICAL SPEECH. HOSPITALIST STEPHANIE PHYSICALLY IMPAIRED TEACHER RENEWED RESTRAINT ORDER FOR SUZIE VEST, BILATERAL SOFT WRIST AND MITTS. PATIENT LESS AGITATED THIS SHIFT. PO KEPPRA PER EMAR. NO S/SX OF SOB AND N/V. BED IN LOWEST POSITION AND ALARM ACTIVATED. WILL CONTINUE TO MONITOR UNTIL DAY SHIFT NURSE ASSUMES CARE.
--- NOTE | 2020-12-11 16:04 | NUR ---
Spiritual care note: Mr. Sanchez was alone in room and appeared to be comfortably sleeping. He did not respond to voice. I will remain available to pt and family.
--- NOTE | 2020-12-11 17:38 | NUR ---
Attempted to meet with him today, but pt was not responsive. His nurse states he has not been attempting to get out of bed unassisted. He is no longer receiving aritifical nurtrion from iv a this time. His is not present at this time, but not no appear to require assistance from Palliative care at this time.
--- NOTE | 2020-12-11 18:46 | NUR ---
SHIFT SUMMARY PT IS NOT AO. PT MEDICATED FOR PAIN X1. PT HAS APNEIC PERIODS WITH SOME RATTLING BREATHS. PT DENIES N/V, SOB. PT IS ON BEDREST. PT HAS HAD MULTIPLE FAMILY MEMBERS IN THE ROOM TODAY. PT HAS NOT HAD INTAKE THIS SHIFT. PT RESTRAINTS DC'D THIS SHIFT. PT IS IN BED, CALL LIGHT IN REACH, ALARM ON.
--- NOTE | 2020-12-12 06:16 | NUR ---
SUMMARY: PT REMAINS ON COMFORT CARE. HE'S NONVERBAL AND NONRESPONSIVE W/EYES CLOSED DURATION OF NOCTE. PT CONT'S TO HAVE APNEIC PAUSES W/IRREGULAR RESPS BUT BREATHING IS UNLABOURE. HE HASN'T VOIDED THIS SHIFT AND REMAINS NPO W/MOUTH CARE PROVIDED PER ORDERS. TURN SCHEDULE MAINTAINED FOR BEDREST. NO ACUTE CHANGES. WCTM AND REPORT TO DAY RN.
--- NOTE | 2020-12-12 15:04 | NUR ---
PATIENT REMAINS ON COMFORT CARE. NO INDICATION OF DISCOMFORT. NO PAIN MEDICATION ADMINISTERED/NEEDED. PATIENT APPEARS COMFORTABLE. FAMILY HAS BEEN VISITING AT BEDSIDE.
--- NOTE | 2020-12-12 17:56 | NUR ---
WAS CALLED INTO THE PATIENTS ROOM BY HIS SON; PATIENT HAD PASSED. TWO-NURSE VERIFIED PERFORMED WITH EMMA LAMBERT. TIME OF AT 1749. BOO PARKER RN CALLED WELL JORY WITH PALLIATIVE CARE.
--- NOTE | 2020-12-12 18:28 | NUR ---
Spiritual care onte: Lengthy conversation with pt's son at bedside. He told me stories about his dad and explained how they became estranged for the past 2 years. He expressed remorse about this. Apparently, pt began to have increasing signs of dementia and "wasn't himself. I didn't understand it was dementia." Son responded well to gentle investment counselor and appeared comforted. Mr. Sanchez was non-responsive, but apeared comfortable. I will remain available to family.
== END 2020-12-12 17:49 | DRG 644 ==
LOC: ER 03:41 → PCU 03:42 → MEDS 11-06 12:08 → PCU 11-06 12:09 → MEDS 11-06 14:59 → ICUE 11-28 12:24 → MEDS 11-29 04:55
PROVIDERS: Emergency Medicine; Internal Medicine; Internal Medicine Endocrinology, Diabetes & Metabolism; ADMIT Internal Medicine
PROC: 5A09457 Assistance with Respiratory Ventilation, 24-96 Consecutive Hours, Continuous Positive Airway Pressure (ICD-10-PCS; principal; 2020-11-28)
DX: E06.3 Autoimmune thyroiditis (principal); G93.49 Other encephalopathy; N39.0 Urinary tract infection, site not specified; Z66 Do not resuscitate; E11.22 Type 2 diabetes mellitus with diabetic chronic kidney disease; Z51.5 Encounter for palliative care; N18.30 Chronic kidney disease, stage 3 unspecified; I12.9 Hypertensive chronic kidney disease with stage 1 through stage 4 chronic kidney disease, or unspecified chronic kidney disease; Z20.822 Contact with and (suspected) exposure to COVID-19; E86.0 Dehydration; R29.6 Repeated falls; E66.9 Obesity, unspecified; E78.5 Hyperlipidemia, unspecified; G40.909 Epilepsy, unspecified, not intractable, without status epilepticus; F03.90 Unspecified dementia, unspecified severity, without behavioral disturbance, psychotic disturbance, mood disturbance, and anxiety; R13.12 Dysphagia, oropharyngeal phase; N40.1 Benign prostatic hyperplasia with lower urinary tract symptoms; R33.8 Other retention of urine; E11.65 Type 2 diabetes mellitus with hyperglycemia; G47.37 Central sleep apnea in conditions classified elsewhere; R47.81 Slurred speech; E87.6 Hypokalemia; R45.1 Restlessness and agitation; G47.00 Insomnia, unspecified; T38.0X5A Adverse effect of glucocorticoids and synthetic analogues, initial encounter; Z79.4 Long term (current) use of insulin; Z79.899 Other long term (current) drug therapy; Z78.1 Physical restraint status; Z91.14 Patient's other noncompliance with medication regimen; W14.XXXA Fall from tree, initial encounter
CPT/HCPCS: 0241U; 36415; 36600; 51701; 51702; 70450; 70496; 70498; 70553; 71045; 72125; 80048; 80053; 80069; 80177; 80400; 81001; 82140; 82248; 82533; 82607; 82746; 82803; 82947; 83036; 83605; 83735; 84100; 84145; 84439; 84443; 84481; 84484; 85025; 85027; 85651; 86038; 86140; 86225; 86235; 86256; 86376; 86592; 86800; 87077; 87086; 87186; 92526; 92610; 92960; 93005; 93010; 93880; 94762; 96372; 96374; 97110; 97162; 97166; 97530; 99152; 99285-25; A9270; A9270-GY; A9579; C1751; C9113; G0378; G0480; J0360; J0696; J0834; J1100; J1200; J1568; J1630; J1650; J1815; J1953; J2060; J2930; J3480; J7030; J7050; J7120; J7512; Q9967